=== PATIENT | male | born 1935 | race Caucasian/White ===

== ENCOUNTER 2017-08-18 06:13 | Inpatient (IN) | payer OTHER ==
--- NOTE | 2017-08-18 06:23 | CPEKG ---
Heart Rate: 85 RR Interval: 706 P-R Interval: 184 QRSD Interval: 128 QT Interval: 392 QTC Interval: 467 P [place]: 61 QRS [place]: 42 T Wave [place]: 192 EKG Severity - ABNORMAL ECG - EKG Impression: SINUS RHYTHM EKG Impression: VENTRICULAR PREMATURE COMPLEX EKG Impression: NONSPECIFIC INTRAVENTRICULAR CONDUCTION DELAY EKG Impression: INFERIOR INFARCT, AGE INDETERMINATE EKG Impression: ST DEPRESSION, CONSIDER ISCHEMIA, ANT-LAT LDS Electronically Signed By: Erica Cary 18-Aug-2017 07:55:21
[2017-08-18] MEDS ORDERED: NITROGLYCERIN 0.4 MG BTL SL PRN ×2 (06:25→11:22)
[2017-08-18] MEDS ORDERED: NITROGLYCERIN 0.4 MG BTL SL ONE (06:27)
--- NOTE | 2017-08-18 06:28 | EDPHY ---
H & P Stated Complaint: CP, 7/10 took 2 Nitro 2400, 0500, Significant Cardiac Hx. Time Seen by Provider: 08/18/17 06:24 HPI/ROS: CC: Chest pain HPI: This 82-year-old male with past medical history of extensive coronary artery bypass grafting times to, right-sided pulmonary embolism, hypertension, and hyperlipidemia presents to the emergency department today with complaints of right-sided chest discomfort that started at midnight last night. He states he has had chest discomfort on and off for the last couple of weeks but this usually would go away with nitroglycerin. The pain woke him at midnight was 7/ 10 and on the right lower chest radiating to the mid chest. He had no left- sided chest discomfort and the pain did not radiate through to his back, neck, or jaw. He felt a little sweaty at one point. His right arm was tingling. He had nausea without vomiting. Occasionally he feels lightheaded. He had no shortness of breath. He took a nitroglycerin at 1:00 a.m. and this only brought the discomfort down to a 4. He drove himself to the emergency department. He states he has also had a cough productive of clear sputum for the last 3 weeks. He has not had a fever. He has no leg pain or swelling. He does not think nitroglycerin was but he was running low and needs a refill. He did receive a flu vaccination this year. No ill contacts. REVIEW OF SYSTEMS: Constitutional: No fever, no chills. Eyes: No discharge. ENT: No sore throat. Respiratory: SEE HPI. Cardiac: SEE HPI. Gastrointestinal: No abdominal pain, no vomiting. Genitourinary: No hematuria. Musculoskeletal: No back pain. Skin: No rashes. Neurological: No headache. Source: Patient Exam Limitations: No limitations - Personal History Current Tetanus/Diphtheria Vaccine: Unsure Current Tetanus Diphtheria and Acellular Pertussis (TDAP): Unsure Tetanus Vaccine Date: unknown - Medical/Surgical History PMH: Past medical history includes coronary artery disease with extensive coronary artery bypass grafting x2, numerous percutaneous interventions, large right- sided pulmonary embolism, hypertension, hyperlipidemia, and prostate cancer, GI bleed, CKD Past surgical history includes coronary artery bypass grafting as stated above, pacemaker implant, appendectomy and tonsillectomy Family history is negative for premature coronary artery disease or clotting disorders Allergy to penicillin "I got a rash inside and out " Medications include warfarin, Plavix, lisinopril, isosorbide, carvedilol, Ranexa , Lipitor, furosemide, fish oil, multivitamin, Klor-Con Envelope Stuffer is Dr. Clem Aguiar Hx Asthma: No Hx Chronic Respiratory Disease: No Hx Diabetes: No Hx Cardiac Disease: Yes Hx Renal Disease: Yes Hx Cirrhosis: No Hx Alcoholism: No Hx HIV/AIDS: No Hx Splenectomy or Spleen Trauma: No Other PMH: CAD,HTN, CHF, STENTS,CABG x 2, pacemaker insertion 10/29, PE prostate cancer, gi bleed, CRI. - Family History Significant Family History: No pertinent family hx - Social History Smoking Status: Never smoked Alcohol Use: None Drug Use: None Additional Social History: The patient is and lives with . Denies tobacco, alcohol or marijuana use. - Physical Exam Exam: General Appearance: Alert, mild distress. Eyes: Pupils equal and round no pallor or injection. ENT, Mouth: Mucous membranes are moist. Respiratory: There are no retractions, lungs are clear to auscultation. Cardiovascular: Regular rate and rhythm. Occasional ectopic beat. Gastrointestinal: Abdomen is soft and nontender, no masses, bowel sounds normal. Neurological: Awake and alert, sensory and motor exams grossly normal. Skin: Warm and dry. Musculoskeletal: Neck is supple nontender. No JVD. Extremities are symmetrical, full range of motion. No calf pain or swelling. Radial and DP pulses intact bilaterally. Psychiatric: Patient is oriented X 3, there is no agitation. DIFFERENTIAL DIAGNOSIS: After history and physical exam differential diagnosis was considered for but not limited to: [Acute coronary syndrome, PE, aortic aneurysm, congestive heart failure, pneumonia, pleuritic pain, biliary colic.] Constitutional: Initial Vital Signs Temperature (C) 97.2 F 08/18/17 06:17 Heart Rate 84 08/18/17 06:17 Respiratory Rate 24 H 08/18/17 06:17 Blood Pressure 123/75 H 08/18/17 06:17 O2 Sat (%) 99 08/18/17 06:17 O2 Delivery Mode Room Air Allergies/Adverse Reactions: Penicillins Allergy (Severe, Verified 08/18/17 06:21) Hives Home Medications: Medication Instructions Recorded Atorvastatin Calcium [Lipitor 80 80 mg PO HS 01/18/15 mg] Carvedilol [Coreg (*)] 6.25 mg PO BIDMEAL 01/18/15 Clopidogrel Bisulfate [Plavix (*)] 75 mg PO DAILY@01/18/15 Isosorbide Mononitrate [Imdur 30 30 mg PO BID 01/18/15 mg (*)] Multivitamins [Multivitamin (*)] 1 each PO DAILY@01/18/15 [place]-3 Fatty Acids [Fish Oil 1000 1,000 mg PO DAILY@01/18/15 mg (*)] Ranolazine [Ranexa] 500 mg PO DAILY@01/18/15 Warfarin Sodium [Coumadin 5MG (*)] 2.5 mg PO SUMOWETHSA@01/18/15 Warfarin Sodium [Coumadin 5MG (*)] 5 mg PO TUFR@01/18/15 Nitroglycerin [Nitrostat 0.4 mg 0.4 mg SL Q5M PRN 12/26/15 (*)] Furosemide [Lasix 40 MG (*)] 40 mg PO DAILY #30 tab 12/28/15 Lisinopril [Zestril 10 mg (*)] 10 mg PO DAILY 01/25/16 Potassium Cl [Klor-Con 20 meq (*)] 20 meq PO DAILY 01/25/16 Medical Decision Making - Diagnostics EKG Interpretation: EKG on arrival showed a sinus rhythm with a heart rate of 85, PVCs, nonspecific intraventricular conduction delay, inferior infarct age indeterminate, ST depression and inverted T-waves diffusely. EKG 2. After nitroglycerin the EKG looked improved with a normal sinus rhythm with a heart rate of 67, PVC, left bundle branch block, and prior inferior infarct and was similar to old EKGs. Imaging Results: One view portable chest x-ray showed a pacemaker left upper chest, changes consistent with coronary artery bypass grafting, no infiltrates or effusions. Imaging: I viewed and interpreted images myself ED Course/Re-evaluation: The patient was seen and examined, vital signs reviewed, an EKG was done immediately upon arrival for chest pain of 7/10 and showed changes consistent with increased strain/ischemia. The patient was given aspirin 81 mg and 1 nitroglycerin tablet sublingually and his pain resolved. A chest x-ray was showed no infiltrate or effusion. He did cough a clear thick sputum. CBC was unremarkable. Comprehensive metabolic panel was remarkable for a slightly elevated creatinine of 1.4. His troponin was 0.015. INR 1.97. BNP 5370. The patient's symptoms could be consistent with both cardiac ischemia and pulmonary embolism. The patient was discussed with the hospitalist Dr. Charmaine Huertas. The patient will be placed in PCU on observation status. The patient was reexamined numerous times and had no further recurrence of his chest pain. The patient is awaiting transport to the main hospital. The patient will be monitored by Emergency Medicine Physician, Dr. Taylor, until tranfer. - Data Points Laboratory Results: Laboratory Results 08/18/17 06:21 08/18/17 06:21 08/18/17 08/18/17 08/18/17 07:00 06:21 06:21 WBC RBC Hgb Hct MCV MCH MCHC RDW Plt Count MPV Neut % (Auto) Lymph % (Auto) [place] % (Auto) Eos % (Auto) Baso % (Auto) Nucleat RBC Rel Count Absolute Neuts (auto) Absolute Lymphs (auto) Absolute Monos (auto) Absolute Eos (auto) Absolute Basos (auto) Absolute Nucleated RBC Immature Gran % Immature Gran # PT 22.0 SEC H SEC (12.0-15.0) INR 1.97 H (0.83-1.16) APTT 37.4 SEC SEC (23.0-38.0) Sodium 144 mEq/L mEq/L (135-145) Potassium 4.3 mEq/L mEq/L (3.5-5.2) Chloride 102 mEq/L mEq/L (97-110) Carbon Dioxide 26 mEq/l mEq/l (22-31) Anion Gap 16 mEq/L mEq/L (8-16) BUN 22 mg/dL mg/dL (7-23) Creatinine 1.4 mg/dL H mg/dL (0.7-1.3) Estimated GFR 48 Glucose 149 mg/dL H mg/dL (70-100) Calcium 9.2 mg/dL mg/dL (8.5-10.4) Magnesium 2.1 mg/dL mg/dL (1.6-2.3) Total Bilirubin 1.1 mg/dL mg/dL (0.1-1.4) Conjugated Bilirubin 0.1 mg/dL mg/dL (0.0-0.5) Unconjugated Bilirubin 1.0 mg/dL mg/dL (0.0-1.1) AST 22 IU/L IU/L (17-59) ALT 27 IU/L IU/L (21-72) Alkaline Phosphatase 61 IU/L IU/L (38-126) Creatine Kinase 37 IU/L IU/L (0-224) CK-MB (CK-2) Fraction 0.58 ng/mL ng/mL (0.00-4.55) Troponin I 0.015 ng/mL ng/mL (0.000-0.034) NT-Pro-B Natriuret Pep 5370 pg/mL H pg/mL (0-450) Total Protein 6.7 g/dL g/dL (6.3-8.2) Albumin 3.7 g/dL g/dL (3.5-5.0) Lipase 245 IU/L IU/L (23-300) Nasal Influenza A PCR Pending Nasal Influenza B PCR Pending 08/18/17 06:21 WBC 7.25 10^3/uL 10^3/uL (3.80-9.50) RBC 4.99 10^6/uL 10^6/uL (4.40-6.38) Hgb 14.9 g/dL g/dL (13.7-17.5) Hct 46.0 % % (40.0-51.0) MCV 92.2 fL fL (81.5-99.8) MCH 29.9 pg pg (27.9-34.1) MCHC 32.4 g/dL g/dL (32.4-36.7) RDW 13.7 % % (11.5-15.2) Plt Count 181 10^3/uL 10^3/uL (150-400) MPV 9.9 fL fL (8.7-11.7) Neut % (Auto) 60.6 % % (39.3-74.2) Lymph % (Auto) 28.4 % % (15.0-45.0) [place] % (Auto) 6.2 % % (4.5-13.0) Eos % (Auto) 3.4 % % (0.6-7.6) Baso % (Auto) 1.1 % % (0.3-1.7) Nucleat RBC Rel Count 0.0 % % (0.0-0.2) Absolute Neuts (auto) 4.39 10^3/uL 10^3/uL (1.70-6.50) Absolute Lymphs (auto) 2.06 10^3/uL 10^3/uL (1.00-3.00) Absolute Monos (auto) 0.45 10^3/uL 10^3/uL (0.30-0.80) Absolute Eos (auto) 0.25 10^3/uL 10^3/uL (0.03-0.40) Absolute Basos (auto) 0.08 10^3/uL 10^3/uL (0.02-0.10) Absolute Nucleated RBC 0.00 10^3/uL 10^3/uL (0-0.01) Immature Gran % 0.3 % % (0.0-1.1) Immature Gran # 0.02 10^3/uL 10^3/uL (0.00-0.10) PT INR APTT Sodium Potassium Chloride Carbon Dioxide Anion Gap BUN Creatinine Estimated GFR Glucose Calcium Magnesium Total Bilirubin Conjugated Bilirubin Unconjugated Bilirubin AST ALT Alkaline Phosphatase Creatine Kinase CK-MB (CK-2) Fraction Troponin I NT-Pro-B Natriuret Pep Total Protein Albumin Lipase Nasal Influenza A PCR Nasal Influenza B PCR Medications Given: Nitroglycerin (Nitrostat) 0.4 mg SL Q5M PRN PRN Reason: Chest Pain Last Admin: 08/18/17 06:31 Dose: 0.4 mg Discontinued Medications Aspirin (Aspirin) 81 mg PO EDNOW ONE Stop: 08/18/17 06:26 Last Admin: 08/18/17 06:29 Dose: Not Given
[2017-08-18] MEDS: ASPIRIN 81 MG CHEWABLE TAB PO ONE ×2 (06:29)
[2017-08-18 06:33] LABS: PLATELET COUNT 181 10^3/uL (150-400)
[2017-08-18 06:42] LABS: INR 1.97 (0.83-1.16)
--- NOTE | 2017-08-18 06:44 | CPEKG ---
Heart Rate: 67 RR Interval: 896 P-R Interval: 180 QRSD Interval: 124 QT Interval: 412 QTC Interval: 435 P [place]: 52 QRS [place]: 33 T Wave [place]: 188 EKG Severity - ABNORMAL ECG - EKG Impression: SINUS RHYTHM EKG Impression: VENTRICULAR PREMATURE COMPLEX EKG Impression: LEFT BUNDLE BRANCH BLOCK EKG Impression: PROBABLE INFERIOR INFARCT WITH LBBB Electronically Signed By: Erica Cary 18-Aug-2017 07:55:15
[2017-08-18] MEDS ORDERED: ACETAMINOPHEN 325 MG TAB PO PRN (08:43)
[2017-08-18] MEDS ORDERED: ONDANSETRON DISINTEGRATING 4 MG TAB PO PRN (08:43)
[2017-08-18] MEDS ORDERED: ONDANSETRON 4 MG/2 ML VIAL IVP PRN (08:43)
--- NOTE | 2017-08-18 12:13 | PDCARCONS ---
Cardiology Consult Reason for Consult: Chest discomfort Chief Complaint: Chest discomfort Requesting Physician: Dr. Barajas History of Present Illness: Patient is an 81 y/o male with history of CAD s/p CABG (5V, 1988; 3V, 1996), PCI (LAD, 2009), PCI (rSVG/LCX, 2015), VHD (aortic, mitral, and tricuspid), ischaemic CMP (45%), SSS s/p PPM, HTN, HLP, and chronic PE (on coumadin) History Information - Allergies/Home Medication List Allergies/Adverse Reactions: Penicillins Allergy (Severe, Verified 08/18/17 06:21) Hives Home Medications: Atorvastatin Calcium [Lipitor 80 mg] 80 mg PO DAILY@01/18/15 [Last Taken 17:00] Carvedilol [Coreg (*)] 6.25 mg PO BIDMEAL@,01/18/15 [Last Taken 08/18/17 05 :00] Clopidogrel Bisulfate [Plavix (*)] 75 mg PO DAILY@01/18/15 [Last Taken 05:00] Isosorbide Mononitrate [Imdur 30 mg (*)] 30 mg PO BID@01/18/15 [Last Taken 08/18/17 05:00] Multivitamins [Multivitamin (*)] 1 tab PO DAILY@01/18/15 [Last Taken 12:00] [place]-3 Fatty Acids [Fish Oil 1000 mg (*)] 1,000 mg PO DAILY@01/18/15 [Last Taken 08/17/17 12:00] Ranolazine [Ranexa] 500 mg PO DAILY@01/18/15 [Last Taken 08/18/17 05:00] Warfarin Sodium [Coumadin 5MG (*)] 2.5 mg PO SUMOWETHFRSA@01/18/15 [Last Taken 08/17/17 16:00] Warfarin Sodium [Coumadin 5MG (*)] 5 mg PO TU@01/18/15 [Last Taken 08/13/17] Nitroglycerin [Nitrostat 0.4 mg (*)] 0.4 mg SL Q5M PRN 12/26/15 [Last Taken 06:00] Lisinopril [Zestril 10 mg (*)] 10 mg PO DAILY@01/25/16 [Last Taken 08/18/17 05:00] Furosemide [Lasix 20 MG (*)] 20 mg PO DAILY@08/18/17 [Last Taken 08/18/17 05: 00] Potassium Cl [Klor-Con] 10 meq PO DAILY@08/18/17 [Last Taken 08/18/17 05:00] Past Medical History: - Social History Smoking Status: Never smoked Alcohol Use: None Drug Use: None Physical Exam Physical Exam: Temp Pulse Resp BP Pulse Ox 36.6 C 60 20 102/51 L 96 08/18/17 09:45 08/18/17 12:00 08/18/17 12:00 08/18/17 12:00 08/18/17 12:00 Lab and Imaging 08/18/17 06:21 08/18/17 06:21 WBC 7.25 10^3/uL (3.80-9.50) 08/18/17 06:21 RBC 4.99 10^6/uL (4.40-6.38) 08/18/17 06:21 Hgb 14.9 g/dL (13.7-17.5) 08/18/17 06:21 Hct 46.0 % (40.0-51.0) 08/18/17 06:21 MCV 92.2 fL (81.5-99.8) 08/18/17 06:21 MCH 29.9 pg (27.9-34.1) 08/18/17 06:21 MCHC 32.4 g/dL (32.4-36.7) 08/18/17 06:21 RDW 13.7 % (11.5-15.2) 08/18/17 06:21 Plt Count 181 10^3/uL (150-400) 08/18/17 06:21 MPV 9.9 fL (8.7-11.7) 08/18/17 06:21 Neut % (Auto) 60.6 % (39.3-74.2) 08/18/17 06:21 Lymph % (Auto) 28.4 % (15.0-45.0) 08/18/17 06:21 [place] % (Auto) 6.2 % (4.5-13.0) 08/18/17 06:21 Eos % (Auto) 3.4 % (0.6-7.6) 08/18/17 06:21 Baso % (Auto) 1.1 % (0.3-1.7) 08/18/17 06:21 Nucleat RBC Rel Count 0.0 % (0.0-0.2) 08/18/17 06:21 Absolute Neuts (auto) 4.39 10^3/uL (1.70-6.50) 08/18/17 06:21 Absolute Lymphs (auto) 2.06 10^3/uL (1.00-3.00) 08/18/17 06:21 Absolute Monos (auto) 0.45 10^3/uL (0.30-0.80) 08/18/17 06:21 Absolute Eos (auto) 0.25 10^3/uL (0.03-0.40) 08/18/17 06:21 Absolute Basos (auto) 0.08 10^3/uL (0.02-0.10) 08/18/17 06:21 Absolute Nucleated RBC 0.00 10^3/uL (0-0.01) 08/18/17 06:21 Immature Gran % 0.3 % (0.0-1.1) 08/18/17 06: Immature Gran # 0.02 10^3/uL (0.00-0.10) 08/18/17 06:21 PT 22.0 SEC (12.0-15.0) H 08/18/17 06:21 INR 1.97 (0.83-1.16) H 08/18/17 06:21 APTT 37.4 SEC (23.0-38.0) 08/18/17 06:21 Sodium 144 mEq/L (135-145) 08/18/17 06:21 Potassium 4.3 mEq/L (3.5-5.2) 08/18/17 06:21 Chloride 102 mEq/L (97-110) 08/18/17 06:21 Carbon Dioxide 26 mEq/l (22-31) 08/18/17 06:21 Anion Gap 16 mEq/L (8-16) 08/18/17 06:21 BUN 22 mg/dL (7-23) 08/18/17 06:21 Creatinine 1.4 mg/dL (0.7-1.3) H 08/18/17 06:21 Estimated GFR 48 08/18/17 06:21 Glucose 149 mg/dL (70-100) H 08/18/17 06:21 Calcium 9.2 mg/dL (8.5-10.4) 08/18/17 06:21 Magnesium 2.1 mg/dL (1.6-2.3) 08/18/17 06:21 Total Bilirubin 1.1 mg/dL (0.1-1.4) 08/18/17 06:21 Conjugated Bilirubin 0.1 mg/dL (0.0-0.5) 08/18/17 06:21 Unconjugated Bilirubin 1.0 mg/dL (0.0-1.1) 08/18/17 06:21 AST 22 IU/L (17-59) 08/18/17 06:21 ALT 27 IU/L (21-72) 08/18/17 06:21 Alkaline Phosphatase 61 IU/L (38-126) 08/18/17 06:21 Creatine Kinase 37 IU/L (0-224) 08/18/17 06:21 CK-MB (CK-2) Fraction 0.58 ng/mL (0.00-4.55) 08/18/17 06:21 Troponin I 0.015 ng/mL (0.000-0.034) 08/18/17 06:21 NT-Pro-B Natriuret Pep 5370 pg/mL (0-450) H 08/18/17 06:21 Total Protein 6.7 g/dL (6.3-8.2) 08/18/17 06:21 Albumin 3.7 g/dL (3.5-5.0) 08/18/17 06:21 Lipase 245 IU/L (23-300) 08/18/17 06:21 Nasal Influenza A PCR NEGATIVE FOR FLU A (NEGATIVE) 08/18/17 07:00 Nasal Influenza B PCR NEGATIVE FOR FLU B (NEGATIVE) 08/18/17 07:00
--- NOTE | 2017-08-18 13:16 | GHP ---
[f rep st] HISTORY AND PHYSICAL DATE OF ADMISSION: 08/18/2017 CHIEF COMPLAINT: Right-sided chest pain. PRIMARY STARCH TREATING ASSISTANT: Dr. Aguiar. HISTORY OF PRESENT ILLNESS: An 82-year-old male with extensive coronary disease status post CABG x2, valvular heart disease (atrial, mitral, tricuspid) , chronic pulmonary embolism 2009, and dual pacemaker who presented with right- sided chest pain. It started at midnight last night and describes the pain under his ribs as a bubble sensation. He had mild nausea and sweating with it. It was an 8/10 and went down to a 4 with nitroglycerin. The pain recurred this morning, thus he drove himself to [facility]. Does complain of occasional left-sided pain. Again, that feels like an air bubble, relieved with nitroglycerin. These episodes last for 30 seconds. He has noted that this sensation has been occurring more frequently, every other day for the past 2 weeks. He denies any new shortness of breath, fevers, chills , or cough. No PND, pillow orthopnea, or lower extremity edema. He exercises in the CSD[employer] program Mondays, Wednesdays, and Fridays at the [employer] without issue. He walked a mile on Saturday without chest pain or shortness of breath. Per family, he has been more "unsteady" this past week. Has appeared to be breathing harder. REVIEW OF SYSTEMS: I completed a 10-point review of systems, negative except as noted in HPI. PAST MEDICAL HISTORY: 1. Coronary disease: CABG x2, five-vessel 1988, 3- vessel, in 1996. 2. Cardiomyopathy, EF had been 45%, down to 20%. Last cardiac catheterization 01/26/2016, showed a patent internal mammary to LAD, 90% stenosis in the saphenous graft to the OM, and an occluded graft to the diagonal. 3. Pulmonary embolism in 2009. Dual pacemaker for sick sinus syndrome. 4. History of VT, 4 to 5 beats on his pacer in 07/2017. 5. Ischemic cardiomyopathy: echo 35% last echo. 6. Valvular heart disease (atrial, mitral, tricuspid). 7. Hypertension. 8. Hyperlipidemia. 9. Prostate cancer. PAST SURGICAL HISTORY: 1. CABG x2. 2. Appendectomy. 3. Tonsillectomy. 4. Radiation beads to prostate. SOCIAL HISTORY: Lives in [place] with his , 50 years. Had 2 sons. No tobacco, alcohol or illicits. FAMILY HISTORY: Coronary disease on both sides as well as hypertension. PHYSICAL EXAMINATION: VITAL SIGNS: Temperature 36.6, blood pressure 108/50, heart rate in the 60s, respirations 14, 98% on room air. GENERAL: Well-appearing , lying in bed, no acute distress. HEENT: PERRLA. EOMI. Oropharynx clear. CARDIOVASCULAR: Regular. No murmurs, gallops, or rubs. No edema. LUNGS: Clear. No crackles. ABDOMEN: Soft, nontender, nondistended. No right upper quadrant pain. GENITOURINARY: No suprapubic pain. MUSCULOSKELETAL: 5/5 upper and lower extremity strength. NEUROLOGIC: 2 through 12 intact. PSYCHIATRIC: Alert oriented x3. LABORATORY STUDIES: WBC 7, hemoglobin 14, hematocrit 46, platelets 181. INR is 1.97, PTT 22. Sodium 144, potassium 4.3, chloride 102, carbon dioxide 26, anion gap 16 creatinine is 1.4 (baseline is 1.1 to 1.3), glucose 149, magnesium 2.1. LFTs within normal. BNP is 53 and 70. Total protein is 6.7. Troponin 0.015. EKG personally reviewed by me, PVC, normal sinus rhythm, has ST depression and lateral 1 aVL as well as 2, 3 and AVF which is different from prior. HOME MEDICATIONS: Tylenol as needed, atorvastatin 80 mg daily, Coreg 6.25 mg twice daily, Plavix 75 mg daily, Lasix 20 mg daily, Imdur 30 mg twice daily, Zestril 10 mg daily, multivitamin, nitroglycerin as needed, omega-3, Zofran as needed, potassium 10 mEq daily, Ranexa 500 mg daily, Coumadin 5 mg Tuesdays, 2.5 mg all the other days. ALLERGIES: Penicillins. ASSESSMENT AND PLAN: 1. Unstable angina: increased symptoms over past 2 weeks. 2nd troponin bumped to 0.1. Has subtle ST depressions lateral and inferior leads on EKG. Currently chest pain free. Start IV heparin. Dr. Abraham evaluated and plan for cath in morning unless more CP overnight. Another consideration is PE, but INR 1/4 was 3.1 and minimally subtherapeutic today at 1.97. Not hypoxic or requiring. If cath unrevealing, consider CTA. 2. Chronic pulmonary embolus. This was in 2009. His INR is slightly low at 1.97. We will not bridge given remote history. Holding while on heparin gtt to avoid bleeding risk 3. History of sick sinus syndrome: dual pacemaker. 4. Valvular heart disease: Affecting the atrial, mitral and tricuspid valve. He is euvolemic here. We will resume home medications. 5. Ischemic cardiomyopathy. EF 35%. Euvolemic. Will resume home medications. 6. Coronary artery disease. Coronary artery bypass grafting x2. Continue statin, Plavix, Ranexa, Imdur. 7. Hypertension, controlled. 8. Hyperlipidemia, statin. DIET: Cardiac. DVT PROPHYLAXIS: On Coumadin. DISPOSITION: Patient warrants observation admission given acute chest pain warranting further evaluation by Cardiology. /[id number]/MODL MTDD
[2017-08-18] MEDS ORDERED: HEPARIN 10,000 UNIT/10 ML MDV (1,000 UNIT/ML) IVP ONE ×2 (13:57→14:51)
[2017-08-18] MEDS ORDERED: HEPARIN 10,000 UNIT/10 ML MDV (1,000 UNIT/ML) IVP PRN (13:57)
[2017-08-18] MEDS ORDERED: HEPARIN/DEXTROSE 500 ML IV SCH ×2 (14:00→15:00)
[2017-08-18] MEDS ORDERED: TEMAZEPAM 15 MG CAP PO PRN (14:01)
[2017-08-18 14:54] LABS: PLATELET COUNT 148 10^3/uL (150-400)
--- NOTE | 2017-08-18 15:12 | GCON ---
[f rep st] CONSULTATION CARDIOLOGY CONSULTATION HISTORY OF PRESENT ILLNESS: I have been asked to visit with this patient by Dr. Alicia Barajas. He is an 82-year-old male with a history of extensive coronary artery disease, status post CABG on 2 separate occasions, multiple PCIs following the most recent CABG in 1996. He also has a history of chronic pulmonary embolism and a dual-chamber pacemaker. He presented with right-sided chest pain which is different than his usual angina. It started at midnight and was described as a "bubble under my ribs." This was associated with mild nausea. He describes the pain as an 8 on a scale of 1-10, and this improved to 4/10 with sublingual nitroglycerin. He had recurrent pain this morning, and therefore went to the [facility]. Of note, he does have similar "bubble" type chest pain on the left side, which is relieved with nitroglycerin. Episodes last for up to 30 seconds. This sensation has been occurring more frequently over the last 2 weeks. No chest pain at rest when I examine the patient. Denies orthopnea or PND. He walked 1 mile on Saturday without any chest pain or shortness of breath. REVIEW OF SYSTEMS: Negative except for what is mentioned in HPI. PAST MEDICAL HISTORY: 1. CABG twice. First one was a 5-vessel CABG in 1988. The second one was a 3- vessel CABG in 1996. 2. Ischemic cardiomyopathy. Echocardiogram done at [facility] on 01/30/2016 reported the ejection fraction of 35%, with basilar to mid inferolateral and inferior hypokinesis, diastolic dysfunction, mild to moderate MR, moderate pulmonary hypertension, mild TR. 3. Pulmonary embolism in 2009. 4. Dual-chamber pacemaker for sick sinus syndrome. 5. Hypertension. 6. Hyperlipidemia. 7. Prostate cancer. PAST SURGICAL HISTORY: CABG as mentioned above. Appendectomy, tonsillectomy, and radiation beads of prostate. SOCIAL HISTORY: Not relevant for this exam. Denies alcohol or tobacco use. FAMILY HISTORY: Not relevant for this exam. PHYSICAL EXAMINATION: GENERAL: This is an elderly white male, lying in bed without any distress. VITAL SIGNS: At the time of examination, blood pressure was 102/51 mmHg, heart rate of 60 to 65 beats per minute, oxygen saturations 96 % on room air, afebrile. NECK: No JVD. No carotid bruit. No thyromegaly. CVS: S1 and S2. Regular rate and rhythm. There is a systolic murmur grade 2/ 6 heard at the apex. There are no gallops or rubs. ABDOMEN: There is no tenderness, guarding, or rigidity. Bowel sounds are present. EXTREMITIES: There is no clubbing, cyanosis, or edema. LABORATORY DATA: EKG on arrival was reviewed. This shows normal sinus rhythm, old inferior myocardial infarction. There are T-wave inversions in lead 1, aVL , and V4 to V6. This is compared to a previous EKG from January 27, 2016. The T- wave inversions in the lateral leads are present at the time of that EKG. Q- waves in the inferior leads are present as well at that time. Echocardiogram is pending at the time of this dictation. Chest x-ray was reviewed. This shows sternal wires in place, dual-chamber pacemakers in place, cardiomegaly. No acute abnormalities are noted. Labs were reviewed. White count 7.25, hemoglobin 14.9, platelets 181. Coags: INR is 1.97. Chemistry: BUN 22, creatinine 1.4, potassium 4.3, sodium 144. LFTs normal. CK-MB 0.58. Troponin 0.015. Second troponin is elevated at 0.191. NT proBNP is elevated at 5370. ASSESSMENT AND PLAN: This is an 82-year-old male with history of extensive coronary artery disease, status post CABG twice, multiple PCIs, who is now presenting with non-ST elevation SC. He is currently chest pain-free. He remains hemodynamically stable. Beta blockers will be continued. Aspirin and Plavix will be continued as well. He is currently on optimal medical therapy with beta blockers, Ranexa, and p.r.n. nitroglycerin. Given his non-ST elevation SC, coronary angiography is appropriate. The procedure will be scheduled for tomorrow morning. Risks of the procedure, including worsening of his renal insufficiency, were discussed with the patient. His RN was present in the room at the time of this discussion. Thank you for the consultation. We will follow the patient with you. /[id number]/MODL MTDD
[2017-08-18] MEDS ORDERED: WARFARIN SODIUM 5 MG TAB PO SCH (16:00)
[2017-08-18] MEDS: OMEGA-3 FATTY ACIDS 1,000 MG CAP PO SCH (16:30)
[2017-08-18] MEDS: MULTIVITAMINS 1 EACH TAB PO SCH (16:30)
[2017-08-18] MEDS: ISOSORBIDE MONONITRATE 30 MG TAB.SR PO SCH ×2 (18:27→19:39)
[2017-08-18] MEDS: CARVEDILOL 6.25 MG TAB PO SCH (18:38)
[2017-08-18] MEDS: FAMOTIDINE 20 MG/NACL 50 ML IV SCH (22:23)
--- NOTE | 2017-08-19 04:44 | ECHO ---
[email or web address] [address] [address] Main: [phone] Fax: Transthoracic Echocardiogram Name: XAVIER KOVACS MR#: [id number] Study Date: 08/18/2017 Study Time: 03:33 PM Date of : 1935 Age: 82 year(s) Height: 180.3 cm (71 in.) Weight: 74.84 kg (165 lb.) BSA: 1.94 m2 Gender: Male Examination: Echo Indication: Eval EF Image Quality: Technically Difficult Contrast: Requested by: David Abraham BP: 120 mmHg/42 mmHg Heart Rate: Rhythm: Indication: Eval EF Procedure Staff Surface Miner: Fannie Kent Reading Physician: David Abraham Requesting Provider: Conclusions: Moderately dilated left ventricle. Moderately reduced systolic LV function. EF is 37 %. The left atrium is moderately to severely dilated. Moderate aortic cusp calcification is present. Moderate calcific aortic valve stenosis. Mild tricuspid regurgitation is present. Cannot rule out LV apical thrombus recommend repeat study with Definity Wall motion abnormalities as listed above. Measurements: Chambers Valvular Assessment AV/MV Valvular Assessment TV/PV Normal Normal Normal Name Value Range Name Value Range Name Value Range IVSd (2D): 1.4 cm (0.6 cm-1.1 AV meanP mmHg ( - ) TR Vmax: 2.47 mm/s ( - ) cm) LVOT Vmax: 0.85 m/s (0.7 m/s-1.1 TR PGmax: 24 mmHg ( - ) LVDd (2D): 6.7 cm (4.2 cm-5.9 m/s) syst. PAP: 34 mmHg ( - ) cm) CANDIE (VTI): 1.1 cm ( - ) LVDs (2D): 5.2 cm (2.1 cm-4 AR (PHT): 358 ms ( - ) cm) MV E Vmax: 0.64 m/s ( - ) LVPWd (2D): 0.9 cm (0.6 cm-1 MV A Vmax: 0.47 m/s ( - ) cm) MV E/A: 1.36 ( - ) LVOTd 2.3 cm 2.3 cm mm LVEF (BP): 37 % (>=55 %) Continued Measurements: Chambers Valvular Assessment AV/MV Valvular Assessment TV/PV Name Value Name Value Name Value Patient: XAVIER KOVACS Study Date: 08/18/2017 Page 1 of 2 03:33 PM LADs Lon.1 cm MV DecTime: 254 m/s CVP (est.): 10 mmHg LA Area: 27.9 cm2 AR Vmax: 3.15 cm/s LA Volume: 113 ml LA Volume Index: 58.2 ml/m2 TAPSE: 1.5 cm Findings: Left Ventricle: Moderately dilated left ventricle. Asymmetrical basal-septal LV hypertrophy. Moderately reduced systolic LV function. EF is 37 %. The basal anteroseptal, basal anterior, basal septal, mid anteroseptal, mid anterior, mid septal, apical anterior, apical lateral, apical inferior and apical septal wall segments are hypokinetic. The basal lateral, basal posterior, basal inferior, mid lateral, mid posterior and mid inferior wall segments are akinetic. Right Ventricle: Normal size right ventricle. Normal RV function. Left Atrium: The left atrium is moderately to severely dilated. Right Atrium: The right atrium is mildly dilated. Mitral Valve: The mitral valve is normal in appearance and function. Trivial to mild mitral regurgitation. No mitral stenosis is present. Aortic Valve: Aortic valve is not well visualized. Moderate aortic cusp calcification is present. Moderate calcific aortic valve stenosis. Mild to moderate aortic valve regurgitation. AV max 3.15 m/s, mean PG 31 mmHg.. Tricuspid Valve: The tricuspid valve is normal in appearance and function. Mild tricuspid regurgitation is present. Right Ventricular systolic pressure is measured at 34 mmHg. Pulmonic Valve: Pulmonary valve not visualized. IVC: The IVC is not visualized. Pericardium: No pericardial effusion. There is pericardial fat. (No Signature Object) Wall Motion Scores Patient: XAVIER KOVACS Study Date: 08/18/2017 Page 2 of 2 03:33 PM [id number]
[2017-08-19] MEDS ORDERED: LISINOPRIL 10 MG TAB PO SCH (05:00)
[2017-08-19] MEDS: RANOLAZINE 500 MG TAB.ER PO SCH (05:00)
[2017-08-19 05:01] LABS: PLATELET COUNT 148 10^3/uL (150-400)
[2017-08-19 05:05] LABS: INR 1.94 (0.83-1.16); PROTIME(PATIENT) 22.2 SEC (12.0-15.0)
[2017-08-19] MEDS: ISOSORBIDE MONONITRATE 30 MG TAB.SR PO SCH ×2 (06:17→16:33)
[2017-08-19] MEDS: CARVEDILOL 6.25 MG TAB PO SCH ×2 (06:18→16:33)
[2017-08-19] MEDS: FUROSEMIDE 20 MG TAB PO SCH (06:18)
[2017-08-19] MEDS: CLOPIDOGREL BISULFATE 75 MG TAB PO SCH (06:18)
[2017-08-19] MEDS: POTASSIUM CL 10 MEQ TAB PO SCH (06:18)
[2017-08-19] MEDS: FAMOTIDINE 20 MG/NACL 50 ML IV SCH (08:03)
--- NOTE | 2017-08-19 08:47 | CPEKG ---
Heart Rate: 60 RR Interval: 1000 P-R Interval: 184 QRSD Interval: 122 QT Interval: 452 QTC Interval: 452 P [place]: -39 QRS [place]: 46 T Wave [place]: 127 EKG Severity - ABNORMAL ECG - EKG Impression: SINUS RHYTHM EKG Impression: NONSPECIFIC INTRAVENTRICULAR CONDUCTION DELAY EKG Impression: INFERIOR INFARCT, AGE INDETERMINATE Electronically Signed By: David Abraham 19-Aug-2017 11:22:19
[2017-08-19] MEDS ORDERED: PERFLUTREN LIPID MICROSPHERES 1.1 MG/ML VIAL IV ONE (09:45)
--- NOTE | 2017-08-19 09:51 | PDCARPN ---
Cardiology Progress Note Chief Complaint: CP Assessment/Plan: Assessment: CP hx of CABG times two times Ischemic CM Plan: 08/19/17 09:49 Echo with definity today to r/o LV thrombus Though pt is CP free, his trop level is elevating On maximal medical therapy, feel we probably need to proceed with [facility] to define anatomy given recent trop elevation/symptoms Subjective: CP free Reviewed/Discussed With: multidisciplinary team Time Spent With Patient: 25 min Objective: Vital Signs (8 Hrs) Temp Pulse Resp BP Pulse Ox 08/19/17 09:00 60 14 105/45 L 96 08/19/17 07:43 36.6 C 60 19 82/46 L 94 08/19/17 06:18 80 95/43 L 08/19/17 06:17 95/43 L 08/19/17 04:00 36.8 C 65 18 93/51 L 96 Intake/Output (24 Hrs) 08/18/17 08/19/17 08/20/17 05:59 05:59 05:59 Intake Total 1100 Output Total 1200 Balance -100 Intake: Oral (ml) 900 IV Intake (ml) 200 Output: Urine (ml) 1200 Toilet 1200 Other: Weight 69 kg Number of Voids Toilet 3 Number of Stools Toilet 1 Result Diagrams: 08/19/17 04:30 08/19/17 04:30 Cardiac Labs: Cardiac Lab Results (72 Hrs) 08/18/17 08/18/17 19:47 12:30 Troponin I 0.203 H 0.191 H - Physical Exam Constitutional: healthy appearing Eyes: PERRL Ears, Nose, Mouth, Throat: moist mucous membranes Cardiovascular: regular rate and rhythm Peripheral Pulses: 1+: femoral (R), femoral (L) Respiratory: clear to auscultate bilat Gastrointestinal: normoactive bowel sounds Genitourinary: no suprapubic tenderness Skin: no rashes Musculoskeletal: no muscular tenderness Neurologic: AAOx3 ICD10 Worksheet Patient Problems: Problems Problem Status Onset Chronic Disease Mgmt/Transitional Care Acute Congestive heart failure Acute
[2017-08-19] MEDS ORDERED: fentaNYL 100 MCG/2 ML INJ ONE (10:12)
[2017-08-19] MEDS ORDERED: MIDAZOLAM 2 MG/2 ML VIAL ONE (10:12)
[2017-08-19] MEDS ORDERED: LIDOCAINE 1% 300 MG/30 ML SDV ONE (10:12)
[2017-08-19] MEDS ORDERED: IOPAMIDOL (ISOVUE-370) 150 ML BTL IV ONE ×2 (10:13→11:06)
[2017-08-19] MEDS ORDERED: CLOPIDOGREL BISULFATE 75 MG TAB ONE (10:39)
--- NOTE | 2017-08-19 10:44 | ECHO ---
[email or web address] [place] [id number] Main: [phone] Fax: Transthoracic Echocardiogram Name: XAVIER KOVACS MR#: [id number] Study Date: 08/19/2017 Study Time: 09:59 AM Date of : 1935 Age: 82 year(s) Height: 180.3 cm (71 in.) Weight: 70.76 kg (156 lb.) BSA: 1.9 m2 Gender: Male Examination: Limited Echo with Definity Indication: R/O LV apical thrombus, hx - CABG x 2/Pacer/HTN Image Quality: Contrast: Requested by: Solomon Garcia BP: / Heart Rate: Rhythm: Indication: R/O LV apical thrombus, hx - CABG x 2/Pacer/HTN Procedure Staff Contact Officer: Sarina Waldron Reading Physician: Brandon Knapp Requesting Provider: Conclusions: Moderately reduced systolic LV function. No LV apical thrombus. Measurements: Chambers Valvular Assessment AV/MV Valvular Assessment TV/PV Normal Normal Normal Name Value Range Name Value Range Name Value Range Continued Measurements: Findings: Left Ventricle: Moderately reduced systolic LV function. No LV apical thrombus. Exam Comments: Definity lipid microspheres was injected to R/O LV apical thrombus. 0.25 mg was injected. . (No Signature Object) Patient: XAVIER KOVACS Study Date: 08/19/2017 Page 1 of 1 09:59 AM [id number]
--- NOTE | 2017-08-19 12:27 | CPIP ---
[f rep st] INVASIVE CARDIAC PROCEDURE DATE OF PROCEDURE: 08/19/2017 INDICATIONS FOR PROCEDURE: Non-STEMI. PROCEDURE PERFORMED: 1. Nonselective right groin sheathogram. 2. Bilateral coronary angiography. 3. Saphenous vein angiography, marginal 1 artery. 4. Saphenous vein angiography, presumably the diagonal artery. 5. Nonselective right internal mammary artery angiography to distal right coronary artery. 6. Left internal mammary artery angiography to mid-left anterior descending. HISTORY: Briefly, this is an 82-year-old male with history of bypass surgery x2 separate times, mode rate aortic stenosis, cardiomyopathy, admitted for chest pain. The patient was found to have elevate d troponin levels. Given these findings, the patient consented for left heart catheterization. DESCRIPTION OF PROCEDURE: After informed consent was obtained, the patient was brought to [facility] where the right groin was prepped in sterile fashion. Lidocaine and a short 6-Mongolian sheath was placed in the right femoral artery, verified angiographically. Through this 6-Mongolian sheath, a JL4 catheter wa s advanced to the left coronary artery. Images of the left coronary artery revealed normal ostial le ft main, distal left main tapered into what appeared to be a subtotally occluded marginal artery, whi ch only had an AV groove circumflex coming off it with a high-grade 99% stenosis in the proximal port ion. Also, there appeared to be a diagonal artery versus large septal, which provided collateralizat ion to a small diagonal artery distally. The LAD was not visualized. After these images were obtain ed, JL4 catheter was removed. A JR4 catheter was advanced to the right coronary artery. Image of th e right coronary artery reveal 100% occluded proximal RCA. After these images were obtained, the JR4 guide was pulled back into the 1st graft, which was an extensively stented graft leading to a margin al artery. The stents themselves were widely patent. Distally, the marginal artery appeared to be w idely patent, and it appeared to be a marginal 1 artery. Of note, there was collateralization of wha t appeared to be other marginal arteries coming off this branch. The JR4 was then pulled back into t he 2nd graft, which was 100% occluded proximal graft of an extensively stented saphenous vein graft, most likely to a diagonal artery, which was noted on prior angiograms. The JR4 catheter was then pul led back into the right subclavian artery, where angiography of the right subclavian artery showed pa tent FARA anastomosing to a distal RCA. This appeared to be patent, though not completely opacified, secondary to nonselective angiogram. However, there did not appear to be any high-grade lesion nece ssitating further examination. After these images were obtained, the JR4 catheter was removed, and ca theter was placed into the left subclavian artery and switched out for a TORRES catheter. Angiography of the left internal mammary artery showed widely patent TORRES anastomosing into the mid LAD. The dis vivian LAD had diffuse plaque disease but no high-grade obstruction. At this time, the TORRES catheter wa s removed. The right groin was closed with a 6-Mongolian AngioSeal. The patient tolerated the procedur e well, with no complications. IMPRESSION: 1. Severe [place] coronary artery disease. 2. Patent left internal mammary artery to left anterior descending. 3. Patent right internal mammary artery to distal right coronary artery. 4. Patent saphenous vein graft, which had been previously extensively stented to marginal 1 artery. 5. Occluded saphenous vein graft to presumably diagonal artery. PLAN: No ventriculogram was obtained secondary to the fact the patient was to have an LV-gram with D efinity to rule out apical thrombus. The patient does have a history of moderate aortic stenosis, wh ich may be underestimated secondary to his reduced ejection fraction. We will continue his current c linical medications and planned discharge as per primary team. /[id number]/MODL
[2017-08-19] MEDS ORDERED: DOBUTamine/DEXTROSE 250 ML IV SCH (12:30)
[2017-08-19] MEDS ORDERED: ATROPINE SULFATE 1 MG/10 ML SYR ONE (12:52)
[2017-08-19] MEDS: MULTIVITAMINS 1 EACH TAB PO SCH (15:28)
[2017-08-19] MEDS: OMEGA-3 FATTY ACIDS 1,000 MG CAP PO SCH (15:28)
--- NOTE | 2017-08-19 16:26 | ASMTCMCOM ---
CM Note CM Note Notes: 82 year old male admitted for CP. Has a hx of CABG x 2, Cardiomyopathy, HTN,HLD, Pacer. Went to the lab clerk today and to continue with medications. Possible discharge Saturday. Patient lives with his . No discharge needs anticipated at this time. Date Signed: 08/19/2017 04:25 PM Electronically Signed By:Kiesha Bryant LCSW
[2017-08-19] MEDS ORDERED: ATORVASTATIN CALCIUM 40 MG TAB PO SCH (17:00)
--- NOTE | 2017-08-19 17:36 | PDMN ---
Medical Necessity Medical necessity: Pt meets INPT criteria per MD as of 08/19/17 and MCG M-230 Myocardial Infarction (acute NSTEMI; hx valvular heart disease, extensive CAD, s /p CABG twice, multiple PCIs, ishcemic cardiomyopathy, pacemaker, PE).
--- NOTE | 2017-08-19 18:27 | HOSPPROG ---
Hospitalist Progress Note Assessment/Plan: Assessment: 82-year-old male presents with non ST-elevation myocardial infarction Plan: 1. Non ST-elevation myocardial infarction. Acute, new problem this provider. Likely type 2, peak troponin 0.2, chest pain, cardiac catheterization demonstrating significant [place] vessel coronary artery disease but patent grafts, not requiring further PCI -LDL 69 at goal -continue Plavix, statin, beta-tiffanie, isosorbide 2. Aortic valve stenosis. Moderate on echo, with mild to moderate aortic insufficiency, TAVR recommended to patient -patient is interested in pursuing, will coordinate with cardiology service -carotid ultrasounds pending for staging -definity study demonstrating no left apical thrombus 3. Recurrent venous thromboembolism. Patient is on lifelong systemic anticoagulation, he has been placed on bridging heparin for possible procedure -continue monitor INR -continue heparin drip 4. Chronic systolic congestive heart failure with ischemic cardiomyopathy. No evidence of acute exacerbation, continue home dose of Lasix -held COOKIE-inhibitor this morning, reinitiate following any cardiac procedures 5. Chronic kidney disease stage 3. Reviewed outside records demonstrates baseline creatinine is 1.1-1.3 -continue to monitor serum creatinine level given contrast load 6. Cough. Patient with clear sputum, sent for culture comma chest x-ray demonstrating no infiltrate, personally interpreted Diet. Cardiac Prophylaxis. High risk patient, currently on heparin drip Code. Disposition. Anticipated discharge uncertain, pending valve replacement recommended by Cardiology. Subjective: Patient reports no chest pain Objective: Vital Signs Temp Pulse Resp BP Pulse Ox 36.6 C 62 16 124/63 H 97 08/19/17 15:23 08/19/17 16:00 08/19/17 15:23 08/19/17 16:00 08/19/17 15:23 PT 22.2 SEC (12.0-15.0) H D 08/19/17 04:30 INR 1.94 (0.83-1.16) H 08/19/17 04:30 - Physical Exam Constitutional: no apparent distress, appears nourished, not in pain, No uncomfortable Cardiovascular: regular rate and rhythym, systolic murmur (1/6 at right sternal border), No irregularly irregular, No tachycardia, No edema Respiratory: no respiratory distress, no rales or rhonchi, clear to auscultation Gastrointestinal: normoactive bowel sounds, soft, non-tender abdomen, no palpable masses Skin: other (No hematoma, ecchymosis, erythema, tenderness at the right cath site) Neurologic: AAOx3, sensation intact bilaterally, No weakness Psychiatric: interacting appropriately, not anxious, not encephalopathic, thought process linear ICD10 Worksheet Patient Problems: Problems Problem Status Onset Chronic Disease Mgmt/Transitional Care Acute Congestive heart failure Acute
[2017-08-19] MEDS ORDERED: HEPARIN 10,000 UNIT/10 ML MDV (1,000 UNIT/ML) IVP PRN (18:34)
[2017-08-19] MEDS ORDERED: HEPARIN/DEXTROSE 500 ML IV SCH (18:45)
[2017-08-19 19:56] LABS: INR 1.66 (0.83-1.16); PROTIME(PATIENT) 19.7 SEC (12.0-15.0)
[2017-08-19] MEDS: FAMOTIDINE 20 MG TAB PO SCH (20:04)
--- NOTE | 2017-08-19 20:08 | CPR ---
[f rep st] NONINVASIVE CARDIAC PROCEDURE REPORT DATE OF PROCEDURE: 08/19/2017 PROCEDURE: Dobutamine stress echo. INDICATIONS: Severe aortic stenosis/reduced ejection fraction. DESCRIPTION OF PROCEDURE: According to [facility] dobutamine stress echocardiographic protocol, the patient had baseline echocardiographic images obtained which showed an EF of approximat kelly 30% to 35% with global hypokinesis with severe calcification across the aortic valve. Baseline i mages revealed a valve area of 0.8 sq cm with a peak velocity of 3.7 cm/sec. Dobutamine infusion was started at 10 mcg/kg per minute and increased to 20 mcg/kg per minute at 3 minutes. At the 3 minute art, the patient's gradient increased from 3.7 to 3.98 cm/sec, with an ejection fraction that incre ased from 30% to 35% to approximately 40% to 45%. At 6 minutes, the patient had repeat images perfor med which showed a velocity of 4.2 cm/sec across the aortic valve with an EF approaching 50%. Patien t's baseline blood pressure was 106/70, which increased to 130/70, heart rate which was baseline at 6 2 increased to 70 beats per minute with maximum infusion. At this time, dobutamine infusion was turne d off. The patient tolerated the procedure well with no complications. IMPRESSION: Severe aortic stenosis as documented by increase of velocity across the aortic valve wit h dobutamine infusion and an increase in ejection fraction. PLAN: We will discuss the patient's results with Dr. Aguiar, the patient's primary human resources technician as t he patient is clearly symptomatic from his aortic stenosis. However, given his reduced ejection frac tion and multiple bypasses, multiple open heart surgeries, he is at high risk for any valve replaceme nt procedure, although TAVR may be considered if he is a viable candidate. We will continue to ayah vyas clinically. /[id number]/MODL
--- NOTE | 2017-08-19 20:34 | GCON ---
[f rep st] CONSULTATION IMPRESSION: 1. Symptomatic aortic stenosis with severe 3-vessel disease, status post two prior coronary artery b ypass grafting and multiple stents. 2. Moderate cardiomyopathy with ejection fraction at 45%. 3. History of pulmonary embolism, remote. 4. Status post permanent pacemaker for sick sinus syndrome. 5. History of ventricular tachycardia. 6. Hypertension. 7. Hyperlipidemia. 8. Prostate cancer. RECOMMENDATIONS: This gentleman is not a surgical candidate, given his poor coronary anatomy, and it would be a third operation with TAVR as an option in a critically abnormal aortic valve confirmed by dobutamine stress echo today. He should undergo TAVR. The option of open surgical procedure was no t offered to the patient, nor would I offer this gentleman surgery. I believe his risk would exceed 10% and his morbidity would be 100%. The patient is quite alert, oriented, and prefers TAVR interven tion. CHIEF COMPLAINT: This is an 82-year-old gentleman with a complex coronary artery revascularization h istory with two previous open bypass procedures. He had known aortic stenosis. He presented with ch est pain and mild troponin elevation. Catheterization today revealed adequate revascularization with 2 internal mammary arteries and a vein graft that were patent. Ventricular function is moderately i mpaired with a dobutamine stress echocardiogram. He had critical aortic stenosis by criteria. Pleas e see separate report. PAST MEDICAL HISTORY: As stated. PAST SURGICAL HISTORY: Surgeries include coronary bypass grafting x2, multiple stents, appendectomy, tonsillectomy, and radiation beads to the prostate. SOCIAL HISTORY: He lives in [place]. 50 years. He has 2 sons. No tobacco or alcohol. FAMILY HISTORY: Noncontributory. REVIEW OF SYSTEMS: He is presently asymptomatic recovering form anesthesia. PHYSICAL EXAMINATION: GENERAL: This is a slender, elderly gentleman, very alert, and oriented in no apparent distress. Blood pressure is 120/80, pulse 76, respirations 16, nonlabored. HEENT: Normoc ephalic. NECK: He has bilateral carotid bruits, radiating from the chest. HEART: 4/6 systolic eje ction murmur. LUNGS: Clear. ABDOMEN: Scaphoid. Bowel sounds are active. RECTAL/: Deferred. N EUROLOGIC: He is grossly intact. EXTREMITIES: No edema. No varicosities. Please see catheterization report and echocardiogram report for details. /[id number]/MODL
[2017-08-20] MEDS: FUROSEMIDE 20 MG TAB PO SCH (05:32)
[2017-08-20] MEDS: RANOLAZINE 500 MG TAB.ER PO SCH (05:32)
[2017-08-20] MEDS: ISOSORBIDE MONONITRATE 30 MG TAB.SR PO SCH (05:32)
[2017-08-20] MEDS: POTASSIUM CL 10 MEQ TAB PO SCH (05:33)
[2017-08-20] MEDS: CARVEDILOL 6.25 MG TAB PO SCH (05:33)
[2017-08-20] MEDS: CLOPIDOGREL BISULFATE 75 MG TAB PO SCH (05:33)
--- NOTE | 2017-08-20 07:06 | PDCARPN ---
Cardiology Progress Note Chief Complaint: SOB/CP Assessment/Plan: Assessment: CP hx of CABG times two times Ischemic CM Plan: 08/19/17 09:49 Echo with definity today to r/o LV thrombus Though pt is CP free, his trop level is elevating On maximal medical therapy, feel we probably need to proceed with [facility] to define anatomy given recent trop elevation/symptoms 08/20/17 07:03 cath revealed no new blockages Pt has severe on echo--confirmed with dobutamine stress echo d/w patient--would lioke to proceed with TAVR if possible Dr. pickens evaluated patient--deemed not a good open AVR candidate Will order CTAs for TAVR today OK to d/c home after CTAs--f/u this week in office with patient and family to discuss fully issues related to TAVR as patient is certainly high-risk given multiple co-morbid issues (mainly low EF) Reviewed/Discussed With: multidisciplinary team Time Spent With Patient: 25 min Objective: Vital Signs (8 Hrs) Temp Pulse Resp BP Pulse Ox 08/20/17 05:33 65 101/55 L 08/20/17 05:32 101/55 L 08/20/17 04:00 36.8 C 64 14 101/55 L 96 08/20/17 00:00 36.5 C 60 12 96/46 L 95 Intake/Output (24 Hrs) 08/19/17 08/20/17 08/21/17 05:59 05:59 05:59 Intake Total 419 Balance 419 Intake: Oral (ml) 200 IV Infused (ml) 219 Heparin/Dextrose 500 ml @ 219 Per Protocol IV CONT RYLIE Rx#:[id number] Other: Weight 69.5 kg Number of Voids Toilet 3 Result Diagrams: 08/19/17 04:30 08/19/17 04:30 - Physical Exam Constitutional: healthy appearing Eyes: PERRL Ears, Nose, Mouth, Throat: moist mucous membranes Cardiovascular: regular rate and rhythm, systolic murmur Peripheral Pulses: 1+: femoral (R), femoral (L) Respiratory: clear to auscultate bilat Gastrointestinal: normoactive bowel sounds Genitourinary: no suprapubic tenderness Skin: no rashes Musculoskeletal: no muscular tenderness Neurologic: AAOx3 Psychiatric: cooperative Lymph, Heme, Immunologic: no lymphadenopathy ICD10 Worksheet Patient Problems: Problems Problem Status Onset Chronic Disease Mgmt/Transitional Care Acute Congestive heart failure Acute
[2017-08-20 07:36] LABS: INR 1.58 (0.83-1.16)
[2017-08-20] MEDS: FAMOTIDINE 20 MG TAB PO SCH (08:32)
[2017-08-20] MEDS ORDERED: NS 500 ML IV ONE (10:00)
[2017-08-20] MEDS: OMEGA-3 FATTY ACIDS 1,000 MG CAP PO SCH (11:20)
[2017-08-20] MEDS: MULTIVITAMINS 1 EACH TAB PO SCH (11:20)
[2017-08-20 11:24] VITALS: BP 100/47; PULSE 65; RESP 20; O2SAT 100
[2017-08-20] MEDS ORDERED: IOPAMIDOL (ISOVUE 370) 100 ML BTL IV ONE (11:24)
[2017-08-20 11:42] VITALS: TEMP 97.9
--- NOTE | 2017-08-20 15:45 | ASDISCHSUM ---
Discharge Information Plan Status:Home with No Needs Medically Cleared to Leave:08/19/2017 Discharge Date:08/20/2017 03:15 PM CM D/C Disposition:Home, Routine, Self-Care ADT D/C Disposition:Home, Routine, Self-Care Projected Discharge Date:08/20/2017 12:00 AM Transportation at D/C:Family Discharge Delay Reason: Follow-Up Date:08/20/2017 12:00 AM Discharge Slot: Final Diagnosis:Severe , Non ST SD Placement Information Patient Contact Information Contact Name:JOJO Relationship: Address:[address] Work Phone: City:[facility] Phone: State/Zip Code:[place] [address] Email: Financial Information Financial Class:Medicare [employer] Plans Primary Plan Desc:[facility] [employer] [facility] Primary Plan Number:[id number] Secondary Plan Desc: Secondary Plan Number: Assessment Information [facility] CM Progress Note CM Note CM Note Notes: 82 year old male admitted for CP. Has a hx of CABG x 2, Cardiomyopathy, HTN,HLD, Pacer. Went to the labor and employment paralegal today and to continue with medications. Possible discharge Saturday. Patient lives with his . No discharge needs anticipated at this time. Date Signed: 08/19/2017 04:25 PM Electronically Signed By:Kiesha Bryant LCSW Case Management Discharge Plan Note Case Management Discharge Discharge Order Complete? Answers: Yes Followup Appointment 08/20/2017 12:00 AM Patient to Obtain Answers: via Family Medications Transportation Arranged Answers: Family/Friends Transport will Pick (Date 08/20/2017 12:00 AM & Time) Family Notified Answers: Yes Notes: Family to transport Discharge Comments Notes: Patient has been discharged. Considering having a TAVR at a later date. No other needs at this time. Date Signed: 08/20/2017 03:42 PM Electronically Signed By:Kiesha Bryant LCSW Intervention Information Intervention Type:*ROJAS-Signed Date of Service:08/19/2017 04:14 PM Patient Type:Observation Staff Member:Caitlyn Son Hours: Discipline: Severity: Comment:
[2017-08-20] MEDS ORDERED: WARFARIN SODIUM 5 MG TAB PO SCH (16:00)
--- NOTE | 2017-08-20 18:25 | PDDCSUM ---
Discharge Summary Discharge Summary: DISCHARGE SUMMARY FOLLOW-UP ITEMS: Outpatient reassessment for TAVR DATE OF ADMISSION: 08/18/2017 DATE OF DISCHARGE: 08/20/2017 DISCHARGE DIAGNOSES: 1. Non ST-elevation myocardial infarction, type 2 2. Severe aortic valve stenosis 3. Recurrent venous thromboembolism 4. Chronic systolic congestive heart failure with ischemic cardiomyopathy 5. Chronic kidney disease stage 3 6. Chronic cough CONSULTATIONS: Interventional Cardiology PROCEDURES / IMAGING: Left heart catheterization demonstrating significant [place] vessel coronary artery disease but patent grafts, not requiring further PCI Echocardiogram demonstrating severe aortic stenosis, no evidence of left ventricular thrombus on definity study CHIEF COMPLAINT: Right-sided chest pain SUBJECTIVE: Patient is feeling well at time discharge, no further chest pain, ambulating well PHYSICAL EXAM ON DISCHARGE: Systolic blood pressure 100, heart rate 60, afebrile overnight, satting well on room air, alert awake oriented x3, heart rhythm is regular, lungs are clear to auscultation bilaterally LABS ON DISCHARGE: Creatinine 1.5, potassium 4, INR 1.58 HOSPITAL COURSE BY PROBLEM: 1. Non ST-elevation myocardial infarction. Present admission, type 2, peak troponin 0.2, catheterization demonstrating significant [place] vessel coronary artery disease with patent grafts, not requiring PCI. This may have been the cause of patient's initial chest pain and he has been advised to utilize sublingual nitroglycerin tabs at home if he experiences recurrence. He is currently on maximal medical therapy with long-acting nitrate, beta-tiffanie, Plavix, statin, COOKIE-inhibitor. The patient did receive an initial heparin drip prior to cardiac catheterization, as his Coumadin was held and his INR was subtherapeutic on presentation. 2. Severe aortic valve stenosis. Severe on cardiac imaging, Cardiology has recommended consideration of TAVR the patient has received staging with CT angiography. He will follow up with them in clinic for further planning. 3. Recurrent venous thromboembolism. Patient is on lifelong systemic anticoagulation with most recent clot in 2009. His Coumadin was held on presentation for cardiac procedure, and has been re-initiated. He should have repeat PT and INR per his regular schedule as an outpatient, to be coordinated through [facility]. He does not require bridging therapy at this time, as his most recent clot is over 7 years ago, and his home dosage of Coumadin has been restarted at discharge. 4. Chronic systolic congestive heart failure with ischemic cardiomyopathy. The patient did not demonstrate any evidence of acute exacerbation, he was continued on his home dosage of Lasix. I recommended holding his home dosage of COOKIE-inhibitor given his marginally low systolic blood pressures around 100, as well as contrast load received during his catheterization and CT angiography. Recommended that he reinitiate his COOKIE-inhibitor under the direction of [facility], and he hold until he has been seen as blood pressure reassessed, as well as his renal function. 5. Chronic kidney disease stage 3. Baseline creatinine is between 1.11.3, marginally elevated at time of discharge to 1.5, should have repeat labs performed when he follows up with [facility] later this week. 6. Chronic cough. Chest x-ray demonstrated no infiltrate, may be related COOKIE- inhibitor, recommend he follow up with [facility] to reassess this. DISCHARGE MEDICATIONS: Please see official discharge medication reconciliation sheet in chart , continue all home medications with the addition of as needed sublingual nitroglycerin. DISCHARGE INSTRUCTIONS: Please follow up with [facility] later this week, to reassess blood pressure , have PT INR creatinine BUN and lytes checked, receive counseling regarding possible TAVR. TIME SPENT: Greater than 30 minutes were spent on direct patient care, as well as discharge planning and preparation.
== END 2017-08-20 15:15 | disposition home or self-care (01) | DRG 281 ==
LOC: CED 06:13 → CEDHOLD 07:07 → F2N 09:34 → OBSVTOIN 08-19 16:51
PROVIDERS: ADMIT Family Medicine; ATTEND Internal Medicine Cardiovascular Disease
PROC: B2131ZZ Fluoroscopy of Multiple Coronary Artery Bypass Grafts using Low Osmolar Contrast (ICD-10-PCS; principal; 2017-08-19)
PROC: B2161ZZ Fluoroscopy of Right and Left Heart using Low Osmolar Contrast (ICD-10-PCS; principal; 2017-08-19)
PROC: B2181ZZ Fluoroscopy of Left Internal Mammary Bypass Graft using Low Osmolar Contrast (ICD-10-PCS; principal; 2017-08-19)
PROC: B2171ZZ Fluoroscopy of Right Internal Mammary Bypass Graft using Low Osmolar Contrast (ICD-10-PCS; principal; 2017-08-19)
PROC: 4A023N7 Measurement of Cardiac Sampling and Pressure, Left Heart, Percutaneous Approach (ICD-10-PCS; principal; 2017-08-19)
DX: I21.4 Non-ST elevation (NSTEMI) myocardial infarction (principal); I25.10 Atherosclerotic heart disease of native coronary artery without angina pectoris; I35.0 Nonrheumatic aortic (valve) stenosis; I25.5 Ischemic cardiomyopathy; I50.22 Chronic systolic (congestive) heart failure; I12.9 Hypertensive chronic kidney disease with stage 1 through stage 4 chronic kidney disease, or unspecified chronic kidney disease; N18.3 Chronic kidney disease, stage 3 (moderate); R05 Cough; Z95.1 Presence of aortocoronary bypass graft; Z86.711 Personal history of pulmonary embolism; E78.5 Hyperlipidemia, unspecified; Z95.0 Presence of cardiac pacemaker; Z79.01 Long term (current) use of anticoagulants; Z85.46 Personal history of malignant neoplasm of prostate
CPT/HCPCS: 71045-PO; 80048-PO; 80076-PO; 82550-PO; 82553-PO; 83690-PO; 83735-PO; 83880-PO; 84484-PO; 85025-PO; 85520-90; 85610-PO; 85730-PO; C1760; C1769; G0378; J0461; J1250; J1644; J2250; J3010; Q9957; Q9967

== ENCOUNTER 2017-08-20 23:34 | Observation (INO) | payer OTHER ==
--- NOTE | 2017-08-20 23:46 | EDPHY ---
H & P Stated Complaint: dull burning mid CP started at 2100 HPI/ROS: HPI CHIEF COMPLAINT: Chest pain HISTORY OF PRESENT ILLNESS: This very pleasant 82-year-old male with significant coronary artery disease, recent hospitalization for non STEMI and underwent left heart catheterization, presents emergency room with chest pain. He states since around 830 this evening he developed some chest discomfort a dull ache in the center of his chest he does not radiate anywhere. He states he took 3 nitroglycerin which improved his pain from 8/10 to 4/10 however eggs continues to have pain. It has been present for the past 3 hr. He denies any nausea, he does state that he short of breath but this is not new. He denies recent illness or fever vomiting. Denies productive cough. Past Medical History: History of a non STEMI recent hospitalization on August 20 for the non STEMI, severe aortic valve stenosis, thromboembolic disease, congestive heart failure with ischemic cardiomyopathy, CKD stage 3, recent left heart catheterization, revealed significant coronary artery disease Past Surgical History: CABG, left chest AICD Social History: Denies daily use drugs alcohol tobacco products Family History: Noncontributory ROS REVIEW OF SYSTEMS: A comprehensive 10 point review of systems is otherwise negative aside from elements mentioned in the history of present illness. Exam Constitutional appears well nontoxic no acute distress triage nursing summary reviewed, vital signs reviewed, awake/alert. Eyes normal conjunctivae and sclera, EOMI, PERRLA. HENT normal inspection, atraumatic, moist mucus membranes, no epistaxis, neck supple/ no meningismus, no raccoon eyes. Respiratory clear to auscultation bilaterally, normal breath sounds, no respiratory distress, no wheezing. Cardiovascular rate normal, regular rhythm, no murmur, no edema, distal pulses normal. Gastrointestinal soft, non-tender, no rebound, no guarding, normal bowel sounds, no distension, no pulsatile mass. Genitourinary no CVA tenderness. Musculoskeletal no midline vertebral tenderness, full range of motion, no calf swelling, no tenderness of extremities, no meningismus, good pulses, neurovascularly intact. Skin pink, warm, & dry, no rash, skin atraumatic. Neurologic awake, alert and oriented x 3, AAOx3, moves all 4 extremities equally, motor intact, sensory intact, CN II-XII intact, normal cerebellar, normal vision, normal speech. Psychiatric normal mood/affect. Heme/Lymph/Immune no lymphadenopathy. Differential diagnosis includes but is not limited to: ACS, atypical chest pain , pneumothorax, pneumonia, pulmonary embolism, aortic dissection, congestive heart failure, tumor, musculoskeletal pain, esophageal pain, GERD, peptic ulcer disease, pancreatitis Medical Decision Making: Plan for this patient full cotton picker, IV establishment, obtain troponin, EKG, full-dose aspirin, nitroglycerin for chest discomfort, chest x-ray and re-evaluate. EKG interpretation by me on record in [employer] system. Impression time of EKG 2346, this is sinus rhythm rate of 71 nonspecific intraventricular conduction delay Q-waves noted inferior leads to 3 AVF, T-wave abnormality and flattening in to 3 AVF, additionally slight ST depression in V4 V5 V6. Similar to previous EKG dated 08/19/2017. Re-evaluation: 1240: Patient re-evaluated this time chest pain-free. 0129AM: Patient no acute distress. Patient resting. Patient be readmitted back to the hospital for chest pain with a positive troponin. I do understand he is having a maximal medical therapy however patient has ongoing angina. Patient would like to be readmitted to the hospital for pain control. Spoke with the hospitalist service Dr. Huertas who agrees to admit the patient. at time of admission patient hemodynamically stable CP free. Source: Patient - Personal History Current Tetanus/Diphtheria Vaccine: Yes Current Tetanus Diphtheria and Acellular Pertussis (TDAP): Yes Tetanus Vaccine Date: unknown - Medical/Surgical History Hx Asthma: No Hx Chronic Respiratory Disease: No Hx Diabetes: No Hx Cardiac Disease: Yes Hx Renal Disease: Yes Hx Cirrhosis: No Hx Alcoholism: No Hx HIV/AIDS: No Hx Splenectomy or Spleen Trauma: No Other PMH: CAD,HTN, CHF, STENTS,CABG x 2, pacemaker insertion 10/29, PE prostate cancer, gi bleed, CRI, angio 08/19 - Social History Smoking Status: Never smoked Constitutional: Initial Vital Signs Temperature (C) 36.9 C 08/20/17 23:36 Heart Rate 71 08/20/17 23:36 Respiratory Rate 16 08/20/17 23:36 Blood Pressure 125/60 H 08/20/17 23:36 O2 Sat (%) 97 08/20/17 23:36 O2 Delivery Mode Room Air Allergies/Adverse Reactions: Penicillins Allergy (Severe, Verified 08/20/17 23:35) Hives Home Medications: Medication Instructions Recorded Atorvastatin Calcium [Lipitor 80 80 mg PO DAILY@01/18/15 mg] Carvedilol [Coreg (*)] 6.25 mg PO BIDMEAL@,01/18/15 Clopidogrel Bisulfate [Plavix (*)] 75 mg PO DAILY@01/18/15 Isosorbide Mononitrate [Imdur 30 30 mg PO BID@,01/18/15 mg (*)] Multivitamins [Multivitamin (*)] 1 tab PO DAILY@01/18/15 [place]-3 Fatty Acids [Fish Oil 1000 1,000 mg PO DAILY@01/18/15 mg (*)] Ranolazine [Ranexa] 500 mg PO DAILY@01/18/15 Warfarin Sodium [Coumadin 5MG (*)] 2.5 mg PO SUMOWETHFRSA@01/18/15 Warfarin Sodium [Coumadin 5MG (*)] 5 mg PO TU@01/18/15 Furosemide [Lasix 20 MG (*)] 20 mg PO DAILY@08/18/17 Potassium Cl [Klor-Con 10 meq (RX)] 10 meq PO DAILY@08/18/17 Nitroglycerin [Nitrostat 0.4 mg 0.4 mg SL Q5M PRN #20 btl 08/20/17 (*)] Medical Decision Making - Data Points Laboratory Results: Laboratory Results 08/20/17 23:55 08/20/17 23:55 Medications Given: Hydrocodone Bitart/Acetaminophen (Bradley 5/325) 1 - 2 tab PO Q4HRS PRN PRN Reason: Pain, Moderate Able to Take PO Stop: 08/31/17 01:28 Last Admin: 08/21/17 15:11 Dose: 2 tab Atorvastatin Calcium (Lipitor) 80 mg PO DAILY@1700 [facility] Stop: 02/17/18 16:59 Last Admin: 08/21/17 16:33 Dose: 80 mg Carvedilol (Coreg) 6.25 mg PO BIDMEAL@ RYLIE Stop: 02/17/18 16:59 Last Admin: 08/21/17 16:33 Dose: 6.25 mg Isosorbide Mononitrate (Imdur) 30 mg PO BID@ RYLIE Stop: 02/17/18 16:59 Last Admin: 08/21/17 16:33 Dose: 30 mg Morphine Sulfate (Morphine) 1 - 2 mg IVP Q1HR PRN PRN Reason: Pain, Severe Unable to Take PO Stop: 08/31/17 01:28 Last Admin: 08/21/17 13:27 Dose: 2 mg Multivitamins (Tab-A-Otoniel) 1 each PO DAILY@12 [facility] Stop: 02/17/18 11:59 Last Admin: 08/21/17 15:17 Dose: 1 each [id number] Ethyl Esters (Fish Oil) 1,000 mg PO DAILY@12 [facility] Stop: 02/17/18 11:59 Last Admin: 08/21/17 15:17 Dose: 1,000 mg Warfarin Sodium (Message-Coumadin Daily Order) 1 ea MISC DAILY@1500 [facility] Stop: 02/17/18 14:59 Last Admin: 08/21/17 16:17 Dose: Not Given Discontinued Medications Aspirin (Aspirin) 324 mg PO EDNOW ONE Stop: 08/20/17 23:48 Last Admin: 08/21/17 02:26 Dose: Not Given Diazepam (Valium) 5 mg PO ONCALL ONE Stop: 08/21/17 09:36 Last Admin: 08/21/17 09:58 Dose: 5 mg Diphenhydramine HCl (Benadryl) 25 mg PO ONCALL ONE Stop: 08/21/17 09:36 Last Admin: 08/21/17 09:58 Dose: 25 mg Famotidine (Pepcid) 20 mg PO ONCALL ONE Stop: 08/21/17 09:36 Last Admin: 08/21/17 09:59 Dose: 20 mg Warfarin Sodium (Coumadin) 5 mg PO ONCE ONE Stop: 08/21/17 03:01 Last Admin: 08/21/17 03:07 Dose: 5 mg Warfarin Sodium (Coumadin) 5 mg PO ONCE@1600 ONE Stop: 08/21/17 16:01 Last Admin: 08/21/17 16:33 Dose: 5 mg Departure - Departure Disposition: [facility] Acute Clinical Impression: Chest pain Qualifiers: Chest pain type: unspecified Qualified Code(s): R07.9 - Chest pain, unspecified Aortic stenosis Qualifiers: Cardiac valve disease etiology: etiology unspecified Qualified Code(s): I35.0 - Nonrheumatic aortic (valve) stenosis Condition: Fair
[2017-08-20] MEDS ORDERED: ASPIRIN 81 MG CHEWABLE TAB PO ONE (23:47)
[2017-08-20] MEDS ORDERED: NITROGLYCERIN 0.4 MG BTL SL PRN (23:47)
--- NOTE | 2017-08-20 23:49 | CPEKG ---
Heart Rate: 71 RR Interval: 845 P-R Interval: 180 QRSD Interval: 128 QT Interval: 420 QTC Interval: 457 P [place]: 50 QRS [place]: 34 T Wave [place]: 187 EKG Severity - ABNORMAL ECG - EKG Impression: SINUS RHYTHM EKG Impression: NONSPECIFIC INTRAVENTRICULAR CONDUCTION DELAY EKG Impression: PROBABLE LVH WITH SECONDARY REPOL ABNRM EKG Impression: INFERIOR INFARCT, AGE INDETERMINATE Electronically Signed By: Len Forbes 21-Aug-2017 06:59:32
[2017-08-21 00:08] LABS: PLATELET COUNT 150 10^3/uL (150-400)
[2017-08-21 00:22] LABS: CREATINE KINASE 69 IU/L (0-224)
[2017-08-21 00:49] LABS: INR 1.44 (0.83-1.16); PROTIME(PATIENT) 17.7 SEC (12.0-15.0)
[2017-08-21] MEDS ORDERED: HYDROCODONE/APAP 5/325 TAB PO PRN (01:29)
[2017-08-21] MEDS ORDERED: ONDANSETRON DISINTEGRATING 4 MG TAB PO PRN (01:29)
[2017-08-21] MEDS ORDERED: ONDANSETRON 4 MG/2 ML VIAL IVP PRN (01:29)
[2017-08-21] MEDS ORDERED: ACETAMINOPHEN 325 MG TAB PO PRN (01:29)
[2017-08-21] MEDS ORDERED: NITROGLYCERIN 0.4 MG BTL SL PRN (01:33)
[2017-08-21] MEDS ORDERED: WARFARIN SODIUM 5 MG TAB PO ONE ×2 (03:00→16:00)
[2017-08-21 05:48] LABS: PLATELET COUNT 136 10^3/uL (150-400)
[2017-08-21 06:08] LABS: INR 1.45 (0.83-1.16); PROTIME(PATIENT) 17.8 SEC (12.0-15.0)
--- NOTE | 2017-08-21 09:20 | GHP ---
[f rep st] HISTORY AND PHYSICAL DATE OF ADMISSION: 08/21/2017 PRIMARY CARE PHYSICIAN: Tani Michael M.D. SOURCE: Patient provides history, appears reliable. His EMR was reviewed. The patient was just dis charged a day prior to admission. CHIEF COMPLAINT: Chest pain. HISTORY OF PRESENT ILLNESS: This is a very pleasant 82-year-old gentleman with past medical history significant for coronary artery disease status post CABG x2 and cardiac cath who was maximized on med ical management as well as aortic stenosis, history of PE on Coumadin, sick sinus syndrome status pos t pacer and multivalvular heart disease including aortic, mitral, tricuspid, hypertension, hyperlipid emia, presents to the emergency department this morning with complaints of recurrence. Patient repor ts his pain started approximately 9 p.m. waking him from sleep. He took nitroglycerin and attempted to go back to sleep. However, an hour later the patient developed chest pain again and again took th e nitroglycerin. It discontinued until about 4 a.m. when patient decided that he wanted to come to [facility] emergency department for evaluation of the recurrent chest pain at approximately 4 a.m. Patient d oes report chest pain is sharp and constant, substernal without any radiation, similar to his previou s chest pain for which he was admitted 2 days ago with an . He also had associated shortne ss of breath, sweatiness. No nausea, vomiting, or increase in edema. The patient reports he has a c hronic cough. No fevers, chills. REVIEW OF SYSTEMS: Negative except as noted above. ALLERGIES: Penicillin. HOME MEDICATIONS: Lasix 20 mg p.o. daily, Plavix 75 mg p.o. daily, Coreg 6.25 mg p.o. twice daily, a torvastatin 80 mg p.o. daily, Coumadin 5 mg p.o. on Tuesdays, 2.5 mg p.o. all other days, Ranexa 500 mg p.o. daily, potassium chloride 10 mEq p.o. daily, fish oil 1000 mg p.o. daily, nitroglycerin subli ngual q.5h p.r.n., multivitamin p.o. daily, Imdur 30 mg p.o. twice daily. PAST MEDICAL HISTORY: Significant for CAD status post CABG x2 with cardiac cath, ischemic cardiomyop athy, last EF 20%, benign essential hypertension, hyperlipidemia, prostate cancer status post radiati on seeding, sick sinus syndrome status post pacer, multivalvular heart disease including aortic steno sis, mitral tricuspid. PAST SURGICAL HISTORY: Significant for pacer placement, CABG x2, cardiac cath, tonsillectomy, adenoi dectomy and radiation bead seeding. FAMILY HISTORY: Significant for coronary artery disease and hypertension. SOCIAL HISTORY: Patient is for 50 years. He does not smoke, drink, or do drugs. PHYSICAL EXAMINATION: VITAL SIGNS: On arrival to the emergency department, blood pressure 125/60, h eart rate 71, respiratory rate 16, O2 saturation 97% on room air with a temperature 36.9. Vitals at time of interview available blood pressure 119/57, heart rate 62, respiratory rate 16. GENERAL: In no acute distress, very pleasant elderly frail-appearing gentleman is lying quietly in bed. He is aw charu, alert, and oriented x4. HEAD: Normocephalic, atraumatic. EYES: Extraocular muscles are intac t. Pupils equal, round, react to light bilaterally and symmetric. No scleral icterus or conjunctiva l injection. Mucous membranes appear moist. NECK: Supple. Trachea midline. CARDIOVASCULAR: Regu lar rate and rhythm with a systolic murmur. No chest wall tenderness to palpation. RESPIRATORY: Un labored breathing. LUNGS: Clear to auscultation bilaterally. No wheezes, rales, or rhonchi appreci ated. RESPIRATORY: Positive bowel sounds, soft, nontender to palpation. No rebound, guarding, or m asses appreciated. : No Candelario in place. No suprapubic tenderness to palpation. EXTREMITIES: Pa tient without any cyanosis, clubbing, or edema. 1+ pedal pulses bilaterally. NEURO: Grossly nonfoc al. No facial drooping. Moves all extremities. Strength intact in upper and lower extremities. PS YCH: Patient awake, alert, and oriented x4. Thought process, content and questions are all appropri ate. LABORATORY STUDIES: WBC 6.60, H and H 14.1 and 41.9, MCV of 90.7, platelet count is 150. PT is 17.7 , INR is 1.44, PTT is 34.9. Sodium 144, potassium 4.1, chloride is 112, CO2 21, anion gap 11, BUN is 20, creatinine 1.5, GFR is 45, glucose 87, calcium 8.9, magnesium 2.1, total bilirubin is 1.0, ALT i s 29, AST 22, alkaline phosphatase is 67, total protein 6.2, albumin 3.7. CK 69, CK-MB is 1.69, trop onin 0.070. BTNP is . Chest x-ray image report reviewed myself showing pacer, cardiomegaly, pulmonary vascular congestion a nd sternotomy wires without any focal consolidations. EKG reviewed myself showing sinus rhythm in the 70s, LVH with repolarization changes inferior infarct with Q-waves in the 2, 3, AVF. Compared to the EKG from 08/19/2016 with no significant changes. ASSESSMENT AND PLAN: A pleasant 82-year-old gentleman known with significant coronary artery disease , maximized on medical therapy who presents with recurrent chest pain. 1. Unstable angina. Patient with recent in the last 48 hours, maximized on medical manage ment. The patient did respond to an additional dose of nitroglycerin received in the emergency depar tment and has not had any recurrence since that time. Troponin is slightly elevated at 0.07, down fr om a troponin of 0.203 on 08/18/2017. We will continue to trend. Continue patient's home medication s. Further discussion with Cardiology if patient has recurrence of his chest pain. Patient is alalondraa pineda scheduled outpatient for evaluation of a possible valve replacement at the end of this week. Cont inue to monitor on telemetry for observation. 2. 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 Plan as above. Continue darius ent's statin, beta tiffanie, Plavix, aspirin, Imdur and Ranexa. 3. History of chronic pulmonary embolus. Patient's INR remained subtherapeutic. Pharmacy consultat ion to assist with dosing. 4. Valvular heart disease as above. 5. Ischemic cardiomyopathy. Last ejection fraction of 35%. Continue patient's home medications as above. 6. Benign essential hypertension. Blood pressure is acceptable at this time. Continue patient's be ta tiffanie and Imdur as above. 7. Hyperlipidemia. Continue statin. 8. Fluid, electrolyte, nutrition. Saline lock IV, cardiac diet, low sodium. Electrolyte replacemen t monitoring replacement if needed. Continue patient's potassium chloride. 9. Prophylaxis. Patient is already on Coumadin and he is subtherapeutic but no additional anticoagu lation will be given. Sequential compression devices (SCDs. 10. Core status is DNR DNI. Patient's is MD OROZCO. DISPOSITION: Patient is admitted to observation on telemetry unit for close cardiac monitoring for a ny further recurrence of chest pain. /[id number]/MODL
[2017-08-21] MEDS ORDERED: TEMAZEPAM 15 MG CAP PO PRN (09:35)
[2017-08-21] MEDS ORDERED: FAMOTIDINE 20 MG TAB PO ONE (09:35)
[2017-08-21] MEDS ORDERED: diphenhydrAMINE 25 MG CAP PO ONE (09:35)
[2017-08-21] MEDS ORDERED: DIAZEPAM 5 MG TAB PO ONE (09:35)
--- NOTE | 2017-08-21 10:05 | CPEKG ---
Heart Rate: 60 RR Interval: 1000 P-R Interval: 172 QRSD Interval: 128 QT Interval: 436 QTC Interval: 436 P [place]: -24 QRS [place]: 43 T Wave [place]: 177 EKG Severity - ABNORMAL ECG - EKG Impression: SINUS RHYTHM EKG Impression: NONSPECIFIC INTRAVENTRICULAR CONDUCTION DELAY EKG Impression: INFERIOR INFARCT, AGE INDETERMINATE Electronically Signed By: Clem Aguiar 25-Aug-2017 10:32:28
[2017-08-21] MEDS ORDERED: MIDAZOLAM 2 MG/2 ML VIAL ONE (10:20)
[2017-08-21] MEDS ORDERED: LIDOCAINE 1% 300 MG/30 ML SDV ONE (10:20)
[2017-08-21] MEDS ORDERED: fentaNYL 100 MCG/2 ML INJ ONE (10:20)
[2017-08-21] MEDS ORDERED: HEPARIN 10,000 UNIT/10 ML MDV (1,000 UNIT/ML) ONE (10:20)
[2017-08-21] MEDS ORDERED: IOPAMIDOL (ISOVUE-370) 150 ML BTL IV ONE (10:20)
[2017-08-21] MEDS ORDERED: ATROPINE SULFATE 1 MG/10 ML SYR ONE ×2 (10:22→12:46)
--- NOTE | 2017-08-21 10:26 | GCON ---
[f rep st] CONSULTATION CARDIOLOGY CONSULT DATE OF CONSULTATION: 08/21/2017 CHIEF COMPLAINT: Chest pain. HISTORY OF PRESENT ILLNESS: This is an 82-year-old male with history of ischemic cardiomyopathy with known severe aortic stenosis, who was just recently discharged from [facility]. The p francisco actually underwent a cardiac catheterization 48 hours ago, which showed patent saphenous vein graft as well as patent FARA and TORRES grafts. The patient did however have severe aortic stenosis as documented by dobutamine stress echo given his reduced ejection fraction. The patient indicates avtar t he went home yesterday and suddenly at 8:00 p.m. last night, started having substernal chest discom fort. This lasted for 3 hours time, and he took numerous antianginal medications including nitroglyc sarahi and Ranexa with no avail. The patient came to the emergency room where the patient indicated th at currently he feels much better. Troponins were slightly elevated at 0.07; however, this is less t castañeda his troponin level was 48 hours ago. Currently he is resting quietly in bed. Blood pressure, he art rate stable. Creatinine is minimally elevated at 1.5. PAST MEDICAL HISTORY: Significant for coronary artery disease, status post bypass surgery x2 separat e times. The patient also has a history of PCI to his saphenous vein graft. EF is currently 35% to 40% on recent echocardiogram. History of hypertension. HOME MEDICATIONS: Please see patient's attached home medication list. SOCIAL HISTORY: Lives by himself. No smoking. No drinking. FAMILY HISTORY: Noncontributory. REVIEW OF SYSTEMS: Patient currently denies any vision changes. No headache. No palpitations. No current chest pain. No abdominal pain. No lower extremity pain. PHYSICAL EXAM: VITAL SIGNS: Patient is currently afebrile 96, blood pressure 110/70 with a heart ra te of 72, respirations 12, 95% on room air. HEENT: Pupils equal round and reactive to light and acc ommodation. Extraocular muscles intact. CARDIOVASCULAR: Regular rate and rhythm. S1-S2. There is a 3/6 systolic murmur heard best at right upper sternal border. LUNGS: Clear to auscultation bilate rally. ABDOMEN: Soft, nontender. No guarding. EXTREMITIES: No cyanosis, no edema. NEUROLOGIC: Alert and oriented x3. LABORATORY VALUES: Currently shows a sodium 142, chloride 112, bicarb 21, BUN 21, creatinine 1.5, po tassium 4.1. INR is 1.4. Hemoglobin 12.6, platelet count of 136. ASSESSMENT/PLAN: Chest pain. At this time, the patient's chest pain is most likely due to his under lying worsening valvular stenosis. We will proceed with a balloon aortic valvuloplasty this morning. Keep the patient n.p.o. I have explained to the patient in depth, this is not a curative procedure but rather a temporizing bridge procedure until his TAVR workup is completed. He has been seen by Lamin Robbins from CT surgery who deemed the patient to be a very high-risk candidate for open AVR. I hav e explained the risks of the balloon aortic valvuloplasty including bleeding, stroke and possible laisha th and the patient understands and agrees with the plan and would like to proceed with this procedure . We will plan this for later this afternoon. /[id number]/MODL
--- NOTE | 2017-08-21 10:36 | PDHPUP ---
History & Physical Update H&P update statement: This history and physical update is based on an assessment of the patient which was completed after admission or registration (within 24 hours), but prior to the surgery/procedure. H&P update: H&P reviewed & patient examined, no change in patient's condition since H&P completed
--- NOTE | 2017-08-21 10:36 | PDPROPOC ---
Sedation Plan of Care Sedation Plan of Care: mental status noted, patient educated of risks, benefits , alternatives, patient can tolerate sedation ASA Classification: ASA 2 Planned drugs: fentanyl, midazolam Mallampati Score: Class 2 Mallampati Reference Image: Patient passed 3-3-2 rule?: Yes
--- NOTE | 2017-08-21 14:42 | CPIP ---
[f rep st] INVASIVE CARDIAC PROCEDURE INDICATION FOR PROCEDURE: Critical aortic stenosis, chest pain. PROCEDURE: 1. Nonselective left groin sheathogram. 2. Abdominal aortogram. 3. Left heart catheterization. 4. valve 20 x 60 balloon. HISTORY: Briefly, this is an 82-year-old male with history of ischemic cardiomyopathy, critical aort ic stenosis as documented by recent dobutamine stress echo. The patient has a known EF of 35% to 40%. The patient was consented for a balloon aortic valvuloplasty as a bridge procedure to eventual TAVR, as he was readmitted with chest pain in the last 24 hours. After informed consent, patient was broug ht to [facility] where the left groin was prepped and draped in the usual sterile fashion. Using lidocaine, a short 8-Filipino sheath placed in left common femoral artery, verified angiographically. This was the n upsized to a 25 cm 8-Filipino sheath due to his significant aortoiliac tortuosity. Patient received 3 000 units heparin IV. The aortic valve was crossed with an AL1 catheter and a straight stiff glidewir e, switched out for a pigtail catheter. Simultaneous pressures were then obtained which showed a mean gradient of approximately 20 mmHg. This obviously underestimated the valve gradient as the patient d oes have a history of reduced cardiac output, ejection fraction, and has had documentable increased g radient across the valve with dobutamine infusion. At this time, the Amplatz superstiff wire was plac ed in the LV. Pigtail catheter was removed. A 20 x 60 balloon was then placed across the valve. Multiple sequential inflations occurred across the valve with the balloon eventually rupturing with the 4th inflation. The balloon was then removed and the catheter was removed and placed into th e LV. Simultaneous pressure was then obtained which showed a mean gradient difference of approximatel y 2 mmHg, predominant reduction of 18 mmHg. The pigtail catheter that was then removed and placed int o the descending aorta where abdominal aortogram was obtained showed patent distal descending aorta, tortuous but patent common external and internal iliac arteries patent, bilateral common femoral elaine leena. At this time, the pigtail catheter was removed wire. The left wire was sutured in p lace. Patient tolerated the procedure well without complications. IMPRESSION: Successful balloon valvuloplasty, reducing mean gradient of approximately 20 down to 2-4 mm. PLAN: The patient will have the sheath discontinued when the ACT is less than 170. If clinically sta ble, will hopefully discharge within 24 hours. The patient will then follow up within our office to radha durán with his family about proceeding with possible TAVR in the near future. /[id number]/MODL
[2017-08-21] MEDS: OMEGA-3 FATTY ACIDS 1,000 MG CAP PO SCH (15:17)
[2017-08-21] MEDS: MULTIVITAMINS 1 EACH TAB PO SCH (15:17)
--- NOTE | 2017-08-21 15:35 | ASMTCASEMG ---
Living Arrangements What is your living Answers: With Spouse arrangement? Who do you live with? Type Of Residence What kind of residence do Answers: House you live in? Discharge Plan Comments Coordination Status Comments Notes: CM discussed pts case in morning rounds w/ Dr. Ramos and JARROD Greco regarding d/c POC. Pt is a 82 y/o man admitted for chest pain. Pt is having a balloon angioplasty today. Pt is scheduled to have a TAVR on 09/02/17. No therapies ordered at this time. Pt will most likely d/c with cardiac rehab. CM available for changes. Plan: Independent Date Signed: 08/21/2017 03:34 PM Electronically Signed By:BUCKY Barger
--- NOTE | 2017-08-21 16:03 | HOSPPROG ---
Hospitalist Progress Note Assessment/Plan: new patient encounter 82 yo male with recent NSTEMI and severe admitted for recurrent CP #Chest pain likely as a result of severed #Severe Aortic Stenosis #CHF #Recurrent VTE #Chronic AC Plan: -Cards will consult with plan for Balloon aortic valvuloplasty as a bridge to eventual TAVR -cont home meds as appropriate -will monitor overnight s/p procedure -change to inpatient -D/W cards Subjective: no cp or sob. afebrile Objective: Vital Signs Temp Pulse Resp BP Pulse Ox 36.5 C 61 15 125/54 H 89 L 08/21/17 15:06 08/21/17 15:06 08/21/17 15:06 08/21/17 15:06 08/21/17 15:06 Laboratory Results 08/21/17 05:34 08/20/17 08/21/17 08/22/17 05:59 05:59 05:59 Intake Total 200 Balance 200 PT 17.8 SEC (12.0-15.0) H 08/21/17 05:34 INR 1.45 (0.83-1.16) H 08/21/17 05:34 - Physical Exam Constitutional: no apparent distress Eyes: PERRL, EOMI Ears, Nose, Mouth, Throat: moist mucous membranes, hearing normal Cardiovascular: regular rate and rhythym Respiratory: no respiratory distress, no rales or rhonchi, clear to auscultation Gastrointestinal: normoactive bowel sounds, soft, non-tender abdomen Skin: warm Neurologic: AAOx3 Psychiatric: interacting appropriately, not anxious, not encephalopathic Lymph, Heme, Immunologic: No petechiae ICD10 Worksheet Patient Problems: Problems Problem Status Onset Chest pain Acute Chronic Disease Mgmt/Transitional Care Acute Congestive heart failure Acute
[2017-08-21] MEDS: ISOSORBIDE MONONITRATE 30 MG TAB.SR PO SCH (16:33)
[2017-08-21] MEDS: CARVEDILOL 6.25 MG TAB PO SCH (16:33)
[2017-08-21] MEDS: ATORVASTATIN CALCIUM 40 MG TAB PO SCH (16:33)
[2017-08-22] MEDS ORDERED: CLOPIDOGREL BISULFATE 75 MG TAB PO SCH (05:00)
[2017-08-22] MEDS ORDERED: POTASSIUM CL 10 MEQ TAB PO SCH (05:00)
[2017-08-22] MEDS ORDERED: RANOLAZINE 500 MG TAB.ER PO SCH (05:00)
[2017-08-22] MEDS ORDERED: FUROSEMIDE 20 MG TAB PO SCH (05:00)
[2017-08-22 05:02] LABS: INR 1.48 (0.83-1.16); PROTIME(PATIENT) 18.1 SEC (12.0-15.0)
[2017-08-22 05:53] LABS: PLATELET COUNT 138 10^3/uL (150-400)
--- NOTE | 2017-08-22 07:18 | PDCARPN ---
Cardiology Progress Note Chief Complaint: CP Assessment/Plan: Assessment: ischemic CM severe CABG Plan: 08/22/17 07:16 Doing well s/p BAV Cr improved BP soft but stable OOB Plan d/c home if clinically stable f/u in office with family on 08/23 if d/c today Subjective: stable Reviewed/Discussed With: multidisciplinary team Time Spent With Patient: 25 min Objective: Vital Signs (8 Hrs) Temp Pulse Resp BP Pulse Ox 08/22/17 03:20 36.7 C 58 L 15 109/54 L 98 Intake/Output (24 Hrs) 08/21/17 08/22/17 08/23/17 05:59 05:59 05:59 Intake Total 200 1000 Output Total 2100 Balance 200 -1100 Intake: Oral (ml) 200 1000 Output: Urine (ml) 2100 Toilet 2100 Other: Weight 68.039 kg 70 kg Intake Quantity Yes Sufficient Number of Voids Toilet 1 1 Result Diagrams: 08/22/17 03:11 08/22/17 03:11 Cardiac Labs: Cardiac Lab Results (72 Hrs) 08/21/17 05:34 Troponin I 0.075 H - Physical Exam Constitutional: healthy appearing Eyes: PERRL Ears, Nose, Mouth, Throat: moist mucous membranes Cardiovascular: regular rate and rhythm, systolic murmur Peripheral Pulses: 1+: femoral (R), femoral (L) Respiratory: clear to auscultate bilat Gastrointestinal: normoactive bowel sounds Genitourinary: no suprapubic tenderness Skin: no rashes Musculoskeletal: no muscular tenderness Neurologic: AAOx3 Psychiatric: cooperative ICD10 Worksheet Patient Problems: Problems Problem Status Onset Aortic stenosis Acute Chest pain Acute Chronic Disease [facility]/Transitional Care Acute Congestive heart failure Acute
[2017-08-22] MEDS: CARVEDILOL 6.25 MG TAB PO SCH ×2 (07:26→15:53)
[2017-08-22 08:01] VITALS: TEMP 97.8
[2017-08-22] MEDS: ISOSORBIDE MONONITRATE 30 MG TAB.SR PO SCH (08:46)
--- NOTE | 2017-08-22 12:27 | PDDCSUM ---
Discharge Summary Discharge Summary: 82 yo male with recent NSTEMI and severe admitted for recurrent CP. He had Balloon aortic valvuloplasty as a bridge to eventual TAVR. He is no longer having chest pain. BP has been somewhat soft and meds have been held temporarily. He will f/u with Cards on Saturday. DDX. #Chest pain likely as a result of severed #Severe Aortic Stenosis #CHF #Recurrent VTE #Chronic AC Exam: VSS NAD AAOX3 RRR CTA B S/NT/ND NO LE EDEMA MEDS: SEE MED REC TOTAL TIME SPENT ON D/C INCLUDING COORDINATION WITH NURSE AND AREA MANAGER IS 35 MINS
[2017-08-22] MEDS: MULTIVITAMINS 1 EACH TAB PO SCH (13:25)
[2017-08-22] MEDS: OMEGA-3 FATTY ACIDS 1,000 MG CAP PO SCH (13:25)
[2017-08-22 13:32] VITALS: BP 117/63; PULSE 62; RESP 16; O2SAT 96
[2017-08-22] MEDS: ATORVASTATIN CALCIUM 40 MG TAB PO SCH (15:55)
[2017-08-22] MEDS ORDERED: WARFARIN SODIUM 5 MG TAB PO ONE (16:00)
--- NOTE | 2017-08-23 09:19 | ASDISCHSUM ---
Discharge Information Plan Status:Home with No Needs Medically Cleared to Leave:08/21/2017 Discharge Date:08/22/2017 04:27 PM CM D/C Disposition: ADT D/C Disposition:Home, Routine, Self-Care Projected Discharge Date:08/22/2017 12:00 AM Transportation at D/C: Discharge Delay Reason: Follow-Up Date:08/22/2017 12:00 AM Discharge Slot: Final Diagnosis: Placement Information Patient Contact Information Contact Name:JOJO Relationship: Address:[address] Work Phone: City:[facility] Phone: [facility]/Zip Code:[place] [address] Email: Financial Information Financial Class:Medicare Advantage Plans Primary Plan Desc:[facility] ADVANTAGE PLANS Primary Plan Number:[id number] Secondary Plan Desc: Secondary Plan Number: Assessment Information [facility] Initial CM Assessment Living Arrangements What is your living Answers: With Spouse arrangement? Who do you live with? Type Of Residence What kind of residence do Answers: House you live in? Discharge Plan Comments Coordination Status Comments Notes: CM discussed pts case in morning rounds w/ Dr. Ramos and JARROD Greco regarding d/c POC. Pt is a 82 y/o man admitted for chest pain. Pt is having a balloon angioplasty today. Pt is scheduled to have a TAVR on 09/02/17. No therapies ordered at this time. Pt will most likely d/c with cardiac rehab. CM available for changes. Plan: Independent Date Signed: 08/21/2017 03:34 PM Electronically Signed By:BUCKY Barger Intervention Information Intervention Type:*BOB-Signed Date of Service:08/21/2017 09:49 AM Patient Type:Observation Staff Member:Caitlyn Son Hours: Discipline: Severity: Comment:
== END 2017-08-22 16:27 | disposition home or self-care (01) ==
LOC: F2W 08-21 02:52
PROVIDERS: ADMIT Family Medicine; ATTEND Family Medicine
DX: I35.0 Nonrheumatic aortic (valve) stenosis (principal); I25.119 Atherosclerotic heart disease of native coronary artery with unspecified angina pectoris; I21.4 Non-ST elevation (NSTEMI) myocardial infarction; I11.9 Hypertensive heart disease without heart failure; I25.5 Ischemic cardiomyopathy; E78.5 Hyperlipidemia, unspecified; N18.3 Chronic kidney disease, stage 3 (moderate); Z95.1 Presence of aortocoronary bypass graft; Z95.0 Presence of cardiac pacemaker; Z95.5 Presence of coronary angioplasty implant and graft; Z85.46 Personal history of malignant neoplasm of prostate
CPT/HCPCS: 71045; 75625; 92986; 93005; 99285; C1769; G0378; J1644; J2250; J3010; Q9967; J0461

== ENCOUNTER 2017-09-02 06:08 | Inpatient (IN) | payer OTHER ==
[2017-09-02] MEDS ORDERED: IOPAMIDOL (ISOVUE-370) 150 ML BTL IV ONE (06:37)
[2017-09-02] MEDS ORDERED: MIDAZOLAM 2 MG/2 ML VIAL IVP ONE (06:58)
[2017-09-02] MEDS ORDERED: CLINDAMYCIN 600 MG/DEXTROSE 50 ML IV ONE (07:00)
--- NOTE | 2017-09-02 07:03 | PDANEPAE ---
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) Date Pacemaker Last Checked: 11/05/14 ANE Patient History - Allergies Allergies/Adverse Reactions: Penicillins Allergy (Severe, Verified 08/20/17 23:35) Hives - Home Medications Home Medications: Atorvastatin Calcium [Lipitor 80 mg] 80 mg PO DAILY@01/18/15 [Last Taken ] Carvedilol [Coreg (*)] 6.25 mg PO BIDMEAL@01/18/15 [Last Taken 08/20/17 17 :00] Clopidogrel Bisulfate [Plavix (*)] 75 mg PO DAILY@01/18/15 [Last Taken ] Isosorbide Mononitrate [Imdur 30 mg (*)] 30 mg PO BID@01/18/15 [Last Taken 08/20/17 17:00] Multivitamins [Multivitamin (*)] 1 tab PO DAILY@01/18/15 [Last Taken 08/20/17 ] [place]-3 Fatty Acids [Fish Oil 1000 mg (*)] 1,000 mg PO DAILY@01/18/15 [Last Taken 08/20/17] Ranolazine [Ranexa] 500 mg PO DAILY@01/18/15 [Last Taken 08/20/17] Warfarin Sodium [Coumadin 5MG (*)] 2.5 mg PO SUMOWETHFRSA@01/18/15 [Last Taken 08/17/17 16:00] Warfarin Sodium [Coumadin 5MG (*)] 5 mg PO TU@01/18/15 [Last Taken 08/13/17] - NPO status NPO Status: no food or drink >8 hours - Anes Hx Anes Hx: no prior problems - Smoking Hx Smoking Status: Never smoked - Alcohol Use Alcohol Use: Rarely - Family Anes Hx Family Anes Hx: none ANE Labs/Vital Signs - Labs - CBC WBC: reviewed and ok ANE Physical Exam - Airway Neck exam: decreased ROM Mallampati Score: Class 2 Mouth exam: poor dentition - Pulmonary Pulmonary: no rales or rhonchi - Cardiovascular Cardiovascular: systolic murmur - ASA Status ASA Status: III ANE Anesthesia Plan Anesthesia Plan: general endotracheal anesthesia
[2017-09-02] MEDS ORDERED: PROPOFOL/EMULSION 500 MG/50 ML BOTTLE IV ONE (07:17)
[2017-09-02] MEDS ORDERED: fentaNYL 100 MCG/2 ML INJ ONE (07:17)
[2017-09-02] MEDS ORDERED: REMIFENTANIL HCL 1 MG VIAL ONE (07:17)
[2017-09-02] MEDS ORDERED: LIDOCAINE 2% 100 MG/5 ML SYR ONE (07:20)
[2017-09-02] MEDS ORDERED: LIDOCAINE HCL 160 MG/4 ML LTA KIT TP ONE (07:20)
[2017-09-02] MEDS ORDERED: ONDANSETRON 4 MG/2 ML VIAL ONE (07:21)
[2017-09-02] MEDS ORDERED: DEXAMETHASONE 4 MG/ML VIAL ONE (07:21)
[2017-09-02] MEDS ORDERED: PHENYLEPHRINE HCL 100 MCG/ML SYR ONE ×3 (07:44→08:45)
[2017-09-02] MEDS ORDERED: PHENYLEPHRINE HCL 100 MCG/ML SYR IVP PRN (08:58)
[2017-09-02] MEDS ORDERED: MEPERIDINE 25 MG/ML SYR IVP PRN (08:58)
[2017-09-02] MEDS ORDERED: ONDANSETRON 4 MG/2 ML VIAL IVP PRN (08:58)
[2017-09-02] MEDS ORDERED: PROMETHAZINE HCL 25 MG/ML INJ IVP PRN (08:58)
[2017-09-02] MEDS ORDERED: NALOXONE HCL 0.4 MG/ML INJ IVP PRN (08:58)
[2017-09-02] MEDS ORDERED: LR 500 ML IV PRN (08:58)
[2017-09-02] MEDS ORDERED: HYDROCODONE/APAP 5/325 TAB PO PRN (08:58)
[2017-09-02] MEDS ORDERED: DEXAMETHASONE 4 MG/ML VIAL IVP PRN (08:58)
[2017-09-02] MEDS ORDERED: PROTAMINE SULFATE 50 MG/5 ML VIAL IVP ONE (09:00)
[2017-09-02] MEDS ORDERED: oxyCODONE IR 5 MG TAB PO PRN (09:13)
[2017-09-02] MEDS ORDERED: HYDROmorphONE/DILAUDID 1 MG/ML INJ IVP PRN (09:13)
[2017-09-02] MEDS ORDERED: hydrALAZINE 20 MG/ML VIAL IVP PRN (09:13)
[2017-09-02] MEDS ORDERED: ATROPINE SULFATE 1 MG/10 ML SYR IVP PRN (09:13)
[2017-09-02] MEDS ORDERED: NITROGLYCERIN 0.4 MG BTL SL PRN (09:15)
--- NOTE | 2017-09-02 09:53 | POSTANESTH ---
Post Anesthetic Evaluation Cardiovascular Status: Normal, Stable Respiratory Status: Normal, Stable Level of Consciousness/Mental Status: Can Participate in Eval Pain Control: Adequate, Prn Tx Ordered Nausea/Vomiting Control: Adequate, Prn Tx Ordered Complications Possibly Related to Anesthesia: None Noted
--- NOTE | 2017-09-02 13:39 | CPIP ---
[f rep st] INVASIVE CARDIAC PROCEDURE DATE OF PROCEDURE: 09/02/2017 INDICATION FOR PROCEDURE: Critical aortic stenosis. Ischemic cardiomyopathy. CO-SURGEONS: Dr. Ernie Robbins, Dr. Cristina Delvalle, Dr. Charles Dominguez PROCEDURE: 1. 6-[place]izen [place] sheath left common femoral vein. 2. 8-[place] sheath left common femoral artery, verified angiographically. 3. 6-[place] sheath right common femoral artery upsized to a 20-[place]izen [place]oul[place] sheath after triple Percl ose placements. 4. Aortic root angiography. 5. Left heart catheterization. 6. Placement of Medtronic CoreValve Evolut R 34 mm by the transfemoral route. HISTORY: Briefly, this is an 82-year-old male with history of severe aortic stenosis, ischemic cardi omyopathy, aortic stenosis, verified on dobutamine stress echocardiogram done 1 week ago. Patient un derwent a balloon valvuloplasty post dobutamine stress echo for symptomatic worsening . The patien t was consented for TAVR placement for today. DESCRIPTION OF PROCEDURE: He was brought to [facility] where the patient was electivel y intubated, ELLEN performed by Dr. Cristina Delvalle. Patient was administered 300 mg IV clindamycin prior t o the case. Left groin was prepped and draped in a sterile fashion, 6-Citizen [place] sheath placed in left c ommon femoral vein, 8-Citizen [place] sheath in left common femoral artery verified angiographically. A 6-Mina nch sheath right common femoral artery verified angiographically, upsized to a 20-[place]izen [place] sheath after triple Perclose placements. The aortic valve was subsequently crossed with an AL1 catheter and a straight stiff Glidewire, switched out for a pigtail catheter, switched out for Confida wire. Jose cement of Medtronic 34 mm valve was then advanced and placed across the valve. This was then deploye d successfully at a pacing rate of 100 beats per minute. The deployment was slightly deep at 68 mm; however, there was no significant PVL noted. Patient did have a baseline pacemaker already in place. After deployment of the valve, there was no impingement of the mitral leaflets and no significant P VL noted. The wire was removed. The right groin was closed with a triple Perclose placement. The l eft groin was closed with Angio-Seal as well as manual pressure. Patient tolerated procedure well wi th no complications. IMPRESSION: Successful placement of Medtronic CoreValve 34 mm valve via the transfemoral route. PLAN: The patient will be admitted to ICU. If clinically stable, anticipate step-down within 24 jj rs. /[id number]/MODL
[2017-09-02] MEDS: MULTIVITAMINS 1 EACH TAB PO SCH (15:19)
[2017-09-02] MEDS: OMEGA-3 FATTY ACIDS 1,000 MG CAP PO SCH (15:19)
--- NOTE | 2017-09-02 15:28 | ASMTCMCOM ---
CM Note CM Note Notes: 09/02/2017 Case Management Note Reviewed chart. Pt admitted for TAVR. Case management d/c needs are unclear. Case Management will rely on PT OT CAMPOS chao for help with identifying d/c neeeds. Case management d/c poc: TBD Case Management to follow. Date Signed: 09/02/2017 03:27 PM Electronically Signed By:Nunu Ryan RN
[2017-09-02] MEDS ORDERED: WARFARIN SODIUM 5 MG TAB PO SCH (16:00)
[2017-09-02] MEDS: ISOSORBIDE MONONITRATE 30 MG TAB.SR PO SCH (17:24)
[2017-09-02] MEDS: CARVEDILOL 6.25 MG TAB PO SCH (17:24)
[2017-09-03 05:06] LABS: PLATELET COUNT 145 10^3/uL (150-400)
[2017-09-03 05:11] LABS: INR 1.23 (0.83-1.16); PROTIME(PATIENT) 15.7 SEC (12.0-15.0)
[2017-09-03] MEDS: RANOLAZINE 500 MG TAB.ER PO SCH (05:27)
[2017-09-03] MEDS: CLOPIDOGREL BISULFATE 75 MG TAB PO SCH (05:27)
[2017-09-03] MEDS: ISOSORBIDE MONONITRATE 30 MG TAB.SR PO SCH ×2 (06:38→16:43)
[2017-09-03] MEDS: CARVEDILOL 6.25 MG TAB PO SCH (06:38)
--- NOTE | 2017-09-03 07:54 | PDCARPN ---
Cardiology Progress Note Chief Complaint: SOB Assessment/Plan: Assessment: s/p TAVR ischemic CM CABG Plan: 09/03/17 07:52 doing very well s/p TAVR OOB check labs in AM transfer to step-down hold BP meds 09/03/17 07:53 Subjective: doing great Reviewed/Discussed With: multidisciplinary team Time Spent With Patient: 25 min Objective: Vital Signs (8 Hrs) Temp Pulse Resp BP Pulse Ox 09/03/17 06:38 60 88/38 L 09/03/17 06:00 36.6 C 60 17 88/38 L 98 09/03/17 04:00 36.4 C 55 L 18 90/38 L 94 09/03/17 02:00 36.4 C 55 L 18 94/39 L 94 09/03/17 00:00 36.7 C 62 24 H 100/47 L 94 Intake/Output (24 Hrs) 09/02/17 09/03/17 09/04/17 05:59 05:59 05:59 Intake Total 1300 Output Total 800 Balance 500 Intake: Oral (ml) 1300 Output: Urine (ml) 800 Urinal 800 Other: Weight 65.8 kg Intake Quantity Yes Sufficient Number of Voids Toilet 2 Urinal 1 Result Diagrams: 09/03/17 04:56 09/03/17 04:56 - Physical Exam Constitutional: healthy appearing Eyes: PERRL Ears, Nose, Mouth, Throat: moist mucous membranes Cardiovascular: regular rate and rhythm Peripheral Pulses: 1+: femoral (R), femoral (L) Respiratory: clear to auscultate bilat Gastrointestinal: normoactive bowel sounds Genitourinary: no suprapubic tenderness Skin: no rashes Musculoskeletal: no muscular tenderness Neurologic: AAOx3 Psychiatric: cooperative ICD10 Worksheet Patient Problems: Problems Problem Status Onset Aortic stenosis Acute Chest pain Acute Chronic Disease Mgmt/Transitional Care Acute Congestive heart failure Acute
--- NOTE | 2017-09-03 09:02 | CPEKG ---
Heart Rate: 60 RR Interval: 1000 P-R Interval: 164 QRSD Interval: 126 QT Interval: 452 QTC Interval: 452 P [place]: 20 QRS [place]: 49 T Wave [place]: 167 EKG Severity - ABNORMAL ECG - EKG Impression: SINUS RHYTHM EKG Impression: NONSPECIFIC INTRAVENTRICULAR CONDUCTION DELAY EKG Impression: BORDERLINE INFERIOR Q WAVES EKG Impression: BORDERLINE ST DEPRESSION, LATERAL LEADS Electronically Signed By: Zachariah Russell 05-Sep-2017 13:08:45
--- NOTE | 2017-09-03 10:02 | ECHO ---
[email or web address] [address] [address] Main: [phone] Fax: Transthoracic Echocardiogram Name: XAVIER KOVACS MR#: [id number] Study Date: 09/03/2017 Study Time: 07:55 AM Date of : 1935 Age: 82 year(s) Height: 177.8 cm (70 in.) Weight: 65.77 kg (145 lb.) BSA: 1.82 m2 Gender: Male Examination: Echo Indication: Post TAVR Image Quality: Contrast: Requested by: Brandon Knapp BP: 94 mmHg/45 mmHg Heart Rate: Rhythm: Indication: Post TAVR Procedure Staff Roustabout Crew Pusher: Chencho Curtis RDCS Reading Physician: Brandon Knapp Requesting Provider: Conclusions: The EF is estimated at approximately 40-45%. There is a pacemaker lead noted in the right ventricle. Mild mitral valve regurgitation is present. There is an AV core valve. the AV max is 2.3 m/s with an Ao mean PG of 14 mmHg. There appears to be two different perivalvular leaks. In Apical long axis there is a moderate jet along the basilar anteroseptal to mid anteroseptal wall with a pressure 1/2 time of 476 ms. The second jet appears to be moderate eccentric across the mitral valve annulus along the Basilar inferolateral to mid inferolateral wall with a pressure 1/2 time of 644 ms. There is no central jet of AI noted thru the Core Valve.. No pericardial effusion. Measurements: Chambers Valvular Assessment AV/MV Valvular Assessment TV/PV Normal Normal Normal Name Value Range Name Value Range Name Value Range IVSd (2D): 1.0 cm (0.6 cm-1.1 AV Vmax: 2.44 m/s (1 m/s-1.7 cm) m/s) LVDd (2D): 6.5 cm (4.2 cm-5.9 AV maxP mmHg ( - ) cm) AV meanP mmHg ( - ) LVDs (2D): 5.2 cm (2.1 cm-4 LVOT Vmax: 0.91 m/s (0.7 m/s-1.1 cm) m/s) LVPWd (2D): 1.1 cm (0.6 cm-1 CANDIE (Vmax): 1.8 cm2 ( - ) cm) CANDIE (VTI): 1.7 cm ( - ) LVOTd 2.5 cm 2.5 cm mm AR (PHT): 493 ms ( - ) LVEF (MOD4): 49 % (>=55 %) MV E Vmax: 0.49 m/s ( - ) MV A Vmax: 0.81 m/s ( - ) MV E/A: 0.60 ( - ) MV meanP mmHg ( - ) MVA (Vmax): 3.4 m/s ( - ) Patient: XAVIER KOVACS Study Date: 09/03/2017 Page 1 of 2 07:55 AM Continued Measurements: Chambers Valvular Assessment AV/MV Name Value Name Value LADs Lon.0 cm MV VTI: 29.30 cm LA Area: 25.2 cm2 AR Vmax: 1.62 cm/s Findings: Left Ventricle: Moderately dilated left ventricle. Diastolic dysfunction is present. . The EF is estimated at approximately 40-45%. Right Ventricle: Normal size right ventricle. There is a pacemaker lead noted in the right ventricle. Left Atrium: The left atrium is mildly to moderately dilated. Right Atrium: The right atrium is normal in size. Mitral Valve: The mitral valve is normal in appearance. Mild mitral valve regurgitation is present. Aortic Valve: There is an AV core valve. the AV max is 2.3 m/s with an Ao mean PG of 14 mmHg. There appears to be two different perivalvular leaks. In Apical long axis there is a moderate jet along the basilar anteroseptal to mid anteroseptal wall with a pressure 1/2 time of 476 ms. The second jet appears to be moderate eccentric across the mitral valve annulus along the Basilar inferolateral to mid inferolateral wall with a pressure 1/2 time of 644 ms. There is no central jet of AI noted thru the Core Valve.. Tricuspid Valve: Mild tricuspid regurgitation is present. Pulmonic Valve: Pulmonary valve not well visualized. Aorta: The aorta is normal. Pericardium: No pericardial effusion. (No Signature Object) Patient: XAVIER KOVACS Study Date: 09/03/2017 Page 2 of 2 07:55 AM [id number]
[2017-09-03] MEDS: OMEGA-3 FATTY ACIDS 1,000 MG CAP PO SCH (13:15)
[2017-09-03] MEDS: MULTIVITAMINS 1 EACH TAB PO SCH (13:15)
[2017-09-03] MEDS ORDERED: WARFARIN SODIUM 5 MG TAB PO SCH (16:00)
[2017-09-03] MEDS ORDERED: ATORVASTATIN CALCIUM 40 MG TAB PO SCH (17:00)
[2017-09-04] MEDS: ISOSORBIDE MONONITRATE 30 MG TAB.SR PO SCH (05:58)
[2017-09-04] MEDS: RANOLAZINE 500 MG TAB.ER PO SCH (05:58)
[2017-09-04] MEDS: CLOPIDOGREL BISULFATE 75 MG TAB PO SCH (05:58)
[2017-09-04 06:28] LABS: PLATELET COUNT 123 10^3/uL (150-400)
[2017-09-04 06:46] LABS: INR 1.33 (0.83-1.16); PROTIME(PATIENT) 16.7 SEC (12.0-15.0)
--- NOTE | 2017-09-04 06:54 | PDCARPN ---
Cardiology Progress Note Chief Complaint: SOB Assessment/Plan: Assessment: s/p TAVR ischemic CM CABG Plan: 09/03/17 07:52 doing very well s/p TAVR OOB check labs in AM transfer to step-down hold BP meds 09/03/17 07:53 09/04/17 06:53 doing well d/c home f/u in 1 week Subjective: no complaints Time Spent With Patient: 25 min Objective: Vital Signs (8 Hrs) Temp Pulse Resp BP Pulse Ox 09/04/17 05:58 111/51 L 09/04/17 04:00 60 96/45 L 96 09/04/17 00:00 36.7 C 64 18 116/51 L 96 Intake/Output (24 Hrs) 09/03/17 09/04/17 09/05/17 05:59 05:59 05:59 Intake Total 1300 940 Output Total 800 Balance 500 940 Intake: Oral (ml) 1300 940 Output: Urine (ml) 800 Urinal 800 Other: Weight 65.8 kg Intake Quantity Yes Yes Sufficient Number of Voids Toilet 2 2 Urinal 1 Result Diagrams: 09/04/17 06:00 09/04/17 06:00 - Physical Exam Constitutional: healthy appearing Eyes: PERRL Ears, Nose, Mouth, Throat: moist mucous membranes Cardiovascular: regular rate and rhythm Peripheral Pulses: 1+: femoral (R), femoral (L) Respiratory: clear to auscultate bilat Gastrointestinal: normoactive bowel sounds Genitourinary: no suprapubic tenderness Skin: no rashes Musculoskeletal: no muscular tenderness Neurologic: AAOx3 Psychiatric: cooperative ICD10 Worksheet Patient Problems: Problems Problem Status Onset Aortic stenosis Acute Chest pain Acute Chronic Disease Mgmt/Transitional Care Acute Congestive heart failure Acute
--- NOTE | 2017-09-04 07:11 | GDS ---
[f rep st] DISCHARGE SUMMARY DISCHARGE DIAGNOSIS: Aortic stenosis. HOSPITAL COURSE: Briefly, this is an 82-year-old male with multiple bypass surgeries, chronic ischem ic cardiomyopathy, who was deemed to be a very high-risk candidate for open AVR. The patient underwe nt successful placement of Medtronic CoreValve Evolut R 34 mm valve via the transfemoral route on . Post procedure, the patient has done exceptionally well, ambulating in the halls the day of the procedure. Today, the patient will be discharged with his home medications, including Plavix an d Coumadin. The patient's creatinine has improved from 1.5 baseline to 1.2. The patient is in good spirits and will follow up with us in the office in 1 week. The patient did have a post procedure ec hocardiogram done, which showed improved ejection fraction with normally functioning TAVR with modera te perivalvular leaking. However, the perivalvular leak did not seem to cause any clinical sequela, and if anything, his myocardial function has improved. He will follow up with us in the office in 1 week's time. /[id number]/MODL
[2017-09-04 07:56] VITALS: BP 94/40; PULSE 62; RESP 20; TEMP 97.7; O2SAT 95
--- NOTE | 2017-09-05 16:48 | ASDISCHSUM ---
Discharge Information Plan Status:Home with No Needs Medically Cleared to Leave: Discharge Date:09/04/2017 10:17 AM CM D/C Disposition:Home, Routine, Self-Care ADT D/C Disposition:Home, Routine, Self-Care Projected Discharge Date:09/04/2017 10:17 AM Transportation at D/C:Family Discharge Delay Reason: Follow-Up Date:09/04/2017 10:17 AM Discharge Slot: Final Diagnosis: Placement Information Patient Contact Information Contact Name:JOJO Relationship: Address:[address] Work Phone: City:[place] [facility] Phone: [facility]/Zip Code:[place] [address] Email: Financial Information Financial Class:Medicare Advantage Plans Primary Plan Desc:[facility] ADVANTAGE PLANS Primary Plan Number:[id number] Secondary Plan Desc: Secondary Plan Number: Assessment Information BC CM Progress Note CM Note CM Note Notes: 09/02/2017 Case Management Note Reviewed chart. Pt admitted for TAVR. Case management d/c needs are unclear. Case Management will rely on PT OT CAMPOS chao for help with identifying d/c neeeds. Case management d/c poc: TBD Case Management to follow. Date Signed: 09/02/2017 03:27 PM Electronically Signed By:Nunu Ryan RN Intervention Information Intervention Type:*IM-Signed Date of Service:09/04/2017 10:03 AM Patient Type:Inpatient Staff Member:Caitlyn Son Hours: Discipline: Severity: Comment:
--- NOTE | 2017-09-09 10:05 | ECHO ---
[email or web address] [place] [id number] Main: [phone] Fax: Transesophageal Echocardiography Name: XAVIER KOVACS MR#: [id number] Study Date: 09/02/2017 Study Time: 07:35 AM Date of : 1935 Age: 82 year(s) Height: ( ) Weight: ( ) BSA: Gender: Male Examination: ELLEN Indication: TAVR Image Quality: Contrast: Requested by: Brandon Knapp Heart Rate: Rhythm: BP: / Procedure Staff Program Director/Music Director: Felicia Gentile [facility] Reading Physician: Crsitina Delvalle Requesting Provider: Brandon Knapp ELLEN Exam Details Conclusions: Dilated left ventricle. Estimated ejection fraction pre-TAVR 25% and after TAVR 25-30%. moderate to severe global hypokinesis. Normal size right ventricle. Mildly to moderately reduced right ventricular function. Mitral regurgitation pre-TAVR is mild; post TAVR moderate to severe.. Pre-TAVR AV gradient on dobutamtine stress echo 18 20mcg 4.1m/s with a mean/max PG 68/39mmHg. Post TAVR AV 1.7m/s with a mean/max PG 6/12mmHg. Mild perivalvular leak.. No pericardial effusion. Measurements: Chambers Valvular Assessment AV/MV Valvular Assessment TV/PV Normal Normal Normal Name Value Range Name Value Range Name Value Range LVOTd 2.6 cm 2.6 cm mm AV meanP mmHg ( - ) CANDIE (VTI): 1.7 cm ( - ) MV meanP mmHg ( - ) MVA (Vmax): 3.9 m/s ( - ) Additional Measurements: Valvular Assessment AV/MV Name Value MV VTI: 16.80 cm Patient: XAVIER KOVACS Study Date: 09/02/2017 Page 1 of 2 07:35 AM Findings: Left Ventricle: Dilated left ventricle. Estimated ejection fraction pre-TAVR 25% and after TAVR 25-30%. moderate to severe global hypokinesis. Right Ventricle: Normal size right ventricle. Mildly to moderately reduced right ventricular function. Mitral Valve: Mitral regurgitation pre-TAVR is mild; post TAVR moderate to severe.. Aortic Valve: Pre-TAVR AV gradient on dobutamtine stress echo 08-19-17 20mcg 4.1m/s with a mean/max PG 68/39mmHg. Post TAVR AV 1.7m/s with a mean/max PG 6/12mmHg. Mild perivalvular leak.. Pericardium: No pericardial effusion. l1n (No Signature Object) Patient: XAVIER KOVACS Study Date: 09/02/2017 Page 2 of 2 07:35 AM [id number]
== END 2017-09-04 10:17 | disposition home or self-care (01) | DRG 267 ==
LOC: F3N 06:08 → F2N 09:13
PROVIDERS: ADMIT Internal Medicine Cardiovascular Disease; ATTEND Internal Medicine Cardiovascular Disease
PROC: 02RF38Z Replacement of Aortic Valve with Zooplastic Tissue, Percutaneous Approach (ICD-10-PCS; principal; 2017-09-02)
PROC: 4A023N7 Measurement of Cardiac Sampling and Pressure, Left Heart, Percutaneous Approach (ICD-10-PCS; principal; 2017-09-02)
PROC: B2111ZZ Fluoroscopy of Multiple Coronary Arteries using Low Osmolar Contrast (ICD-10-PCS; principal; 2017-09-02)
DX: I35.0 Nonrheumatic aortic (valve) stenosis (principal); Z00.6 Encounter for examination for normal comparison and control in clinical research program; I25.5 Ischemic cardiomyopathy; I10 Essential (primary) hypertension; E78.5 Hyperlipidemia, unspecified; I25.10 Atherosclerotic heart disease of native coronary artery without angina pectoris; Z85.46 Personal history of malignant neoplasm of prostate; Z95.1 Presence of aortocoronary bypass graft; Z86.711 Personal history of pulmonary embolism; Z95.810 Presence of automatic (implantable) cardiac defibrillator
CPT/HCPCS: 97116-GP; 97161-GP; 97165-GO; 97530-GO; 97535-GO; C1760; C1769; C1894; G8978-GP-CI; G8978-GP-CJ; G8979-GP-CI; G8980-GP-CI; G8987-GO-CI; G8987-GO-CJ; G8988-GO-CI; G8989-GO-CI; J1100; J1170; J1644; J2001; J2370; J2405; J2704; J2720; J3010; Q9967

== ENCOUNTER 2017-10-20 23:56 | Observation (INO) | payer OTHER ==
--- NOTE | 2017-10-21 00:04 | EDPHY ---
H & P Time Seen by Provider: 10/21/17 00:00 HPI/ROS: CC: Chest pain HPI: This 82-year-old male with past medical history of ischemic cardiomyopathy , s/p CABG, s/p Pacemaker, severe aortic stenosis and recent TAVR placement on September 02, 2015 drove himself to the emergency department tonight for chest discomfort that started at about 8 o'clock this evening. He states the discomfort came on while he was watching TV. He describes it as a burning sensation substernally and radiating to his right chest. It does not radiate anywhere else. No palpitations. He took nitroglycerin at 8:30 p.m., 10:30 p.m. , 11:15 p.m. The nitroglycerin would help "a little bit" and then the pain would return. He states his pain is currently 5/10. No other aggravating or alleviating factors. He had some mild increased shortness of breath but nothing significant. Did not have nausea, vomiting, or diaphoresis. He did not feel dizzy or lightheaded. He states he has been following his doctor's orders to walk 5 miles a week. He will occasionally have some chest discomfort but usually it is relieved by the nitroglycerin. No other complaints. He has not been ill recently. REVIEW OF SYSTEMS: Constitutional: No fever, no chills. Eyes: No discharge. ENT: No sore throat. Respiratory: States chronic cough. Cardiac: See HPI. Gastrointestinal: No abdominal pain, no vomiting. Genitourinary: No hematuria. Musculoskeletal: No back pain. Skin: No rashes. Neurological: No headache. Source: Patient Exam Limitations: No limitations - Personal History Tetanus Vaccine Date: unknown - Medical/Surgical History PMH: PMH: Severe aortic stenosis, ischemic cardiomyopathy, sick sinus syndrome, pulmonary embolism, hypertension, hyperlipidemia, prostate cancer, GI bleed, chronic kidney disease PSH: Coronary artery bypass grafting, pacemaker, TAVR, radiation bead seeding, appendectomy, tonsillectomy FH: CAD, HTN Allergies: Penicillin Medications: Verified by nursing and reviewed by me. Includes Warfarin, Plavix , Furosemide, Coreg, Atorvastatin Social: No tobacco products or alcohol PCP: Dr. Tani Michael Hx Asthma: No Hx Chronic Respiratory Disease: No Hx Diabetes: No Hx Cardiac Disease: Yes Hx Renal Disease: Yes Hx Cirrhosis: No Hx Alcoholism: No Hx HIV/AIDS: No Hx Splenectomy or Spleen Trauma: No Other PMH: CAD,HTN, CHF, STENTS,CABG x 2, pacemaker insertion 10/29, PE prostate cancer, gi bleed, CRI, angio 08/19 - Family History Significant Family History: Heart disease, Hypertension - Social History Smoking Status: Never smoked Alcohol Use: None Drug Use: None Additional Social History: . - Physical Exam Exam: General Appearance: Alert, no distress. Eyes: Pupils equal and round no pallor or injection. ENT, Mouth: Mucous membranes are moist. Respiratory: There are no retractions, lungs are clear to auscultation. Cardiovascular: Regular rate and rhythm. ?systolic murmur Gastrointestinal: Abdomen is soft and nontender, no pulsatile masses, bowel sounds normal. Neurological: Awake and alert, sensory and motor exams grossly normal. Skin: Warm and dry, no rashes. Musculoskeletal: Neck is supple nontender. No JVD. Extremities are symmetrical, full range of motion. No edema. Psychiatric: Patient is oriented X 3, there is no agitation. DIFFERENTIAL DIAGNOSIS: After history and physical exam differential diagnosis was considered for but not including [Myocardial Infarction, Acute Coronary Syndrome, Biliary Disease, unlikely PE, aortic aneurysm/dissection] Constitutional: Initial Vital Signs O2 Sat (%) 94 10/21/17 00:01 O2 Delivery Mode Nasal Cannula O2 (L/minute) 3 Allergies/Adverse Reactions: Penicillins Allergy (Severe, Verified 10/21/17 00:05) Hives Home Medications: Medication Instructions Recorded Atorvastatin Calcium [Lipitor 80 80 mg PO DAILY@01/18/15 mg] Clopidogrel Bisulfate [Plavix (*)] 75 mg PO DAILY@01/18/15 Isosorbide Mononitrate [Imdur 30 30 mg PO BID@,01/18/15 mg (*)] Multivitamins [Multivitamin (*)] 1 tab PO DAILY@01/18/15 Hartwick-3 Fatty Acids [Fish Oil 1000 1,000 mg PO DAILY@01/18/15 mg (*)] Ranolazine [Ranexa] 500 mg PO DAILY@01/18/15 Warfarin Sodium [Coumadin 5MG (*)] 2.5 mg PO SUMOWETHFRSA@01/18/15 Warfarin Sodium [Coumadin 5MG (*)] 5 mg PO TU@16 01/18/15 Nitroglycerin [Nitrostat 0.4 mg 0.4 mg SL Q5M PRN #20 btl 08/20/17 (*)] Furosemide [Lasix 20 MG (*)] 10/21/17 Medical Decision Making - Diagnostics EKG Interpretation: EKG 23:58 NRS, HR 76, NSIVCD, LVH with repolarization abnormality, inferior infarct age indeterminate, ST Depression c/w ischemia ant-lat leads more pronounced than on prior EKG dated 09/03/2017. EKG 00:24 NSR, HR 70, NSIVCD, inferior infarct age indeterminate, inferior Q waves; ant-lat ST depression improved from EKG #1 EKG 0051 NSR, HR 60, PVC, NSIVCD, inferior Q waves, ant-lat ST depression similar to EKG #2 EKG 0105 NSR, HR 60, NSIVCD, LVH with secondary repolarization abnormality, inferior infarct age indeterminate. ant-lat ST depression unchanged PAIN RETURNING 10/12: EKG 01:38 NSR, HR 61, NSIVCD, LVH with secondary repolarization abnormality, inferior infarct age indeterminate, t-wave inversions ant-lat Imaging Results: Portable CXR: sternal wires, clips c/w prior open heart, bipolar pacemaker on left, borderline cardiomegaly, pulmonary venous prominence. No infiltrate or effusion. Similar to prior CXR 08/20/17. Imaging: I viewed and interpreted images myself ED Course/Re-evaluation: The patient was seen and examined Vital signs reviewed. He was given 81 mg of aspirin. His 1st EKG showed changes consistent with ischemia. He was given 3 sublingual nitroglycerin and started on a nitro drip and eventually his pain completely resolved. His subsequent serial EKGs showed improvement of the anterolateral ischemia apparent on the 1st EKG. His chest x-ray was unchanged. His CBC and comprehensive metabolic panel significant for a BUN of 28, creatinine of 1.8, platelets of 129, and a troponin at 0.029 and INR of 1.73. Dr. Jolley, hospitalist, was contacted and will accept the admission. He would like me to discuss whether the patient needed cardiac catheterization, stat echo, or bridging anticoagulation with Cardiology. Dr. Patten was contacted at 01:00 and felt the patient did not need cardiac catheterization, stat echo, or bridging anticoagulation tonight. He would like the nitro drip changed to 1 in of nitropaste every 6 hr. and cardiac enzymes per protocol. This information was relayed to Dr. Jolley. The patient continued to do well and pain free until approximately 01:35 when he said the pain started to return (2-310). An EKG was repeated and the patient was given 1 mg of morphine and his pain again resolved completely. At 02:05 EMS crew has arrived to transport the patient [facility]. - Data Points Laboratory Results: Laboratory Results 10/21/17 00:00 10/21/17 00:00 10/21/17 10/21/17 10/21/17 00:00 00:00 00:00 WBC 6.80 10^3/uL 10^3/uL (3.80-9.50) RBC 4.60 10^6/uL 10^6/uL (4.40-6.38) Hgb 14.0 g/dL g/dL (13.7-17.5) Hct 41.9 % % (40.0-51.0) MCV 91.1 fL fL (81.5-99.8) MCH 30.4 pg pg (27.9-34.1) MCHC 33.4 g/dL g/dL (32.4-36.7) RDW 13.3 % % (11.5-15.2) Plt Count 129 10^3/uL L 10^3/uL (150-400) MPV 10.3 fL fL (8.7-11.7) Neut % (Auto) 51.8 % % (39.3-74.2) Lymph % (Auto) 34.3 % % (15.0-45.0) [place] % (Auto) 8.5 % % (4.5-13.0) Eos % (Auto) 3.4 % % (0.6-7.6) Baso % (Auto) 1.9 % H % (0.3-1.7) Nucleat RBC Rel Count 0.0 % % (0.0-0.2) Absolute Neuts (auto) 3.52 10^3/uL 10^3/uL (1.70-6.50) Absolute Lymphs (auto) 2.33 10^3/uL 10^3/uL (1.00-3.00) Absolute Monos (auto) 0.58 10^3/uL 10^3/uL (0.30-0.80) Absolute Eos (auto) 0.23 10^3/uL 10^3/uL (0.03-0.40) Absolute Basos (auto) 0.13 10^3/uL H 10^3/uL (0.02-0.10) Absolute Nucleated RBC 0.00 10^3/uL 10^3/uL (0-0.01) Immature Gran % 0.1 % % (0.0-1.1) Immature Gran # 0.01 10^3/uL 10^3/uL (0.00-0.10) PT 19.9 SEC H SEC (12.0-15.0) INR 1.73 H (0.83-1.16) APTT 37.7 SEC SEC (23.0-38.0) Sodium 144 mEq/L mEq/L (135-145) Potassium 4.6 mEq/L mEq/L (3.5-5.2) Chloride 108 mEq/L mEq/L (97-110) Carbon Dioxide 25 mEq/l mEq/l (22-31) Anion Gap 11 mEq/L mEq/L (8-16) BUN 28 mg/dL H mg/dL (7-23) Creatinine 1.8 mg/dL H mg/dL (0.7-1.3) Estimated GFR 36 Glucose 91 mg/dL mg/dL (70-100) Calcium 9.5 mg/dL mg/dL (8.5-10.4) Magnesium 2.2 mg/dL mg/dL (1.6-2.3) Total Bilirubin 0.9 mg/dL mg/dL (0.1-1.4) Conjugated Bilirubin 0.3 mg/dL mg/dL (0.0-0.5) Unconjugated Bilirubin 0.6 mg/dL mg/dL (0.0-1.1) AST 45 IU/L IU/L (17-59) ALT 31 IU/L IU/L (21-72) Alkaline Phosphatase 72 IU/L IU/L (38-126) Creatine Kinase 34 IU/L IU/L (0-224) CK-MB (CK-2) Fraction 0.71 ng/mL ng/mL (0.00-4.55) Troponin I 0.029 ng/mL ng/mL (0.000-0.034) Total Protein 7.1 g/dL g/dL (6.3-8.2) Albumin 3.9 g/dL g/dL (3.5-5.0) Lipase 230 IU/L IU/L (23-300) Medications Given: Nitroglycerin/Dextrose (Nitroglycerin 200 Mcg/Ml (Premix)) 250 mls @ 1.5 mls/ hr IV CONT RYLIE PRN Reason: Protocol Stop: 04/19/18 00:43 Last Admin: 10/21/17 00:47 Dose: 250 mls Discontinued Medications Aspirin (Aspirin) 81 mg PO EDNOW ONE Stop: 10/21/17 00:09 Last Admin: 10/21/17 00:12 Dose: 81 mg Morphine Sulfate (Morphine) 1 mg IVP EDNOW ONE Stop: 10/21/17 01:41 Last Admin: 10/21/17 01:44 Dose: 1 mg Nitroglycerin (Nitrostat) 0.4 mg SL Q5M PRN PRN Reason: Chest Pain Last Admin: 10/21/17 00:21 Dose: 0.4 mg Nitroglycerin (Nitro-Bid 2%) 1 inch TP EDNOW ONE Stop: 10/21/17 01:03 Last Admin: 10/21/17 01:09 Dose: 1 inch Departure - Departure Disposition: [facility] Inpatient Acute Clinical Impression: Acute coronary syndrome Condition: Good
[2017-10-21] MEDS ORDERED: ASPIRIN 81 MG CHEWABLE TAB PO ONE (00:08)
[2017-10-21] MEDS ORDERED: ASPIRIN 81 MG CHEWABLE TAB ONE (00:09)
[2017-10-21] MEDS: NITROGLYCERIN 0.4 MG BTL SL PRN ×3 (00:11→00:21)
--- NOTE | 2017-10-21 00:18 | CPEKG ---
Heart Rate: 60 RR Interval: 1000 P-R Interval: 148 QRSD Interval: 124 QT Interval: 420 QTC Interval: 420 P Anna: -13 QRS Anna: 7 T Wave Anna: 158 EKG Severity - ABNORMAL ECG - EKG Impression: SINUS RHYTHM EKG Impression: NONSPECIFIC INTRAVENTRICULAR CONDUCTION DELAY EKG Impression: PROBABLE LVH WITH SECONDARY REPOL ABNRM EKG Impression: INFERIOR INFARCT, AGE INDETERMINATE Electronically Signed By: Erica Cary 21-Oct-2017 23:04:18
[2017-10-21 00:21] LABS: PLATELET COUNT 129 10^3/uL (150-400)
[2017-10-21 00:22] LABS: INR 1.73 (0.83-1.16); PROTIME(PATIENT) 19.9 SEC (12.0-15.0)
[2017-10-21] MEDS ORDERED: NITROGLYCERIN/D5W 50 MG/250 ML BOTTLE IV ONE (00:30)
[2017-10-21] MEDS ORDERED: NITROGLYCERIN/DEXTROSE 250 ML IV SCH ×2 (00:45→01:00)
[2017-10-21] MEDS ORDERED: NITROGLYCERIN 2% 1 GM PACKET TP ONE (01:02)
[2017-10-21] MEDS ORDERED: ACETAMINOPHEN 325 MG TAB PO PRN (02:11)
[2017-10-21] MEDS ORDERED: ONDANSETRON 4 MG/2 ML VIAL IVP PRN (02:11)
[2017-10-21] MEDS ORDERED: ONDANSETRON DISINTEGRATING 4 MG TAB PO PRN (02:11)
--- NOTE | 2017-10-21 04:22 | PDGENHP ---
History and Physical - Chief Complaint Chest pain - History of Present Illness 82 yo M w/ hx of s/p recent TAVR, CAD s/p CABG x2, PE, SSS s/p PPM, and ICM presents with chest pain. Patient noted chest pain this evening, which he describes as severe and central with radiation to the R chest. The pain lasted for several hours despite taking 3 sublingual NTG's at home. He presented to [facility] and pain resolved after initiation of NTG drip. In the ED ECG was notable for lateral STD's, which resolved on subsequent check. At the time of my evaluation he is asymptomatic. History Information - Allergies/Home Medication List Allergies/Adverse Reactions: Penicillins Allergy (Severe, Verified 10/21/17 00:05) Hives Home Medications: Atorvastatin Calcium [Lipitor 80 mg] 80 mg PO DAILY@01/18/15 [Last Taken ] Clopidogrel Bisulfate [Plavix (*)] 75 mg PO DAILY@01/18/15 [Last Taken ] Isosorbide Mononitrate [Imdur 30 mg (*)] 30 mg PO BID@01/18/15 [Last Taken 08/20/17 17:00] Multivitamins [Multivitamin (*)] 1 tab PO DAILY@01/18/15 [Last Taken 08/20/17 ] [place]-3 Fatty Acids [Fish Oil 1000 mg (*)] 1,000 mg PO DAILY@01/18/15 [Last Taken 08/20/17] Ranolazine [Ranexa] 500 mg PO DAILY@01/18/15 [Last Taken 08/20/17] Warfarin Sodium [Coumadin 5MG (*)] 2.5 mg PO SUMOWETHFRSA@01/18/15 [Last Taken 08/17/17 16:00] Warfarin Sodium [Coumadin 5MG (*)] 5 mg PO TU@01/18/15 [Last Taken 08/13/17] Furosemide [Lasix 20 MG (*)] 10/21/17 [Last Taken Unknown] I have personally reviewed and updated: family history, medical history - Past Medical History coronary artery disease, CHF, myocardial infarction, pulmonary embolism Additional medical history: Aortic stenosis s/p TAVR - Surgical History Reports: coronary bypass surgery Additional surgical history: TAVR 09/02/17 - Family History Positive for: CAD, hypertension - Social History Smoking Status: Never smoked Alcohol Use: None Drug Use: None Review of Systems Review of Systems: ROS: 10pt was reviewed & negative except for what was stated in HPI & below Physical Exam Physical Exam: Temp Pulse Resp BP Pulse Ox 36.8 C 61 18 134/73 H 99 10/21/17 02:40 10/21/17 02:40 10/21/17 02:40 10/21/17 02:40 10/21/17 02:40 O2 (L/minute) 2 Constitutional: no apparent distress, chronically ill appearing Eyes: PERRL, EOMI Ears, Nose, Mouth, Throat: moist mucous membranes, no oral mucosal ulcers Cardiovascular: regular rate and rhythym, systolic murmur Respiratory: no respiratory distress, clear to auscultation Gastrointestinal: normoactive bowel sounds, soft, non-tender abdomen Skin: warm, normal color Musculoskeletal: full muscle strength, no muscle tenderness Neurologic: AAOx3, CN II-XII Intact Psychiatric: interacting appropriately, not anxious Lab Data & Imaging Review 10/21/17 00:00 10/21/17 00:00 WBC 6.80 10^3/uL (3.80-9.50) 10/21/17 00:00 RBC 4.60 10^6/uL (4.40-6.38) 10/21/17 00:00 Hgb 14.0 g/dL (13.7-17.5) 10/21/17 00:00 Hct 41.9 % (40.0-51.0) 10/21/17 00:00 MCV 91.1 fL (81.5-99.8) 10/21/17 00:00 MCH 30.4 pg (27.9-34.1) 10/21/17 00:00 MCHC 33.4 g/dL (32.4-36.7) 10/21/17 00:00 RDW 13.3 % (11.5-15.2) 10/21/17 00:00 Plt Count 129 10^3/uL (150-400) L 10/21/17 00:00 MPV 10.3 fL (8.7-11.7) 10/21/17 00:00 Neut % (Auto) 51.8 % (39.3-74.2) 10/21/17 00:00 Lymph % (Auto) 34.3 % (15.0-45.0) 10/21/17 00:00 [place] % (Auto) 8.5 % (4.5-13.0) 10/21/17 00:00 Eos % (Auto) 3.4 % (0.6-7.6) 10/21/17 00:00 Baso % (Auto) 1.9 % (0.3-1.7) H 10/21/17 00:00 Nucleat RBC Rel Count 0.0 % (0.0-0.2) 10/21/17 00:00 Absolute Neuts (auto) 3.52 10^3/uL (1.70-6.50) 10/21/17 00:00 Absolute Lymphs (auto) 2.33 10^3/uL (1.00-3.00) 10/21/17 00:00 Absolute Monos (auto) 0.58 10^3/uL (0.30-0.80) 10/21/17 00:00 Absolute Eos (auto) 0.23 10^3/uL (0.03-0.40) 10/21/17 00:00 Absolute Basos (auto) 0.13 10^3/uL (0.02-0.10) H 10/21/17 00:00 Absolute Nucleated RBC 0.00 10^3/uL (0-0.01) 10/21/17 00:00 Immature Gran % 0.1 % (0.0-1.1) 10/21/17 00:00 Immature Gran # 0.01 10^3/uL (0.00-0.10) 10/21/17 00:00 PT 19.9 SEC (12.0-15.0) H 10/21/17 00:00 INR 1.73 (0.83-1.16) H 10/21/17 00:00 APTT 37.7 SEC (23.0-38.0) 10/21/17 00:00 Sodium 144 mEq/L (135-145) 10/21/17 00:00 Potassium 4.6 mEq/L (3.5-5.2) 10/21/17 00:00 Chloride 108 mEq/L (97-110) 10/21/17 00:00 Carbon Dioxide 25 mEq/l (22-31) 10/21/17 00:00 Anion Gap 11 mEq/L (8-16) 10/21/17 00:00 BUN 28 mg/dL (7-23) H 10/21/17 00:00 Creatinine 1.8 mg/dL (0.7-1.3) H 10/21/17 00:00 Estimated GFR 36 10/21/17 00:00 Glucose 91 mg/dL (70-100) 10/21/17 00:00 Calcium 9.5 mg/dL (8.5-10.4) 10/21/17 00:00 Magnesium 2.2 mg/dL (1.6-2.3) 10/21/17 00:00 Total Bilirubin 0.9 mg/dL (0.1-1.4) 10/21/17 00:00 Conjugated Bilirubin 0.3 mg/dL (0.0-0.5) 10/21/17 00:00 Unconjugated Bilirubin 0.6 mg/dL (0.0-1.1) 10/21/17 00:00 AST 45 IU/L (17-59) 10/21/17 00:00 ALT 31 IU/L (21-72) 10/21/17 00:00 Alkaline Phosphatase 72 IU/L (38-126) 10/21/17 00:00 Creatine Kinase 34 IU/L (0-224) 10/21/17 00:00 CK-MB (CK-2) Fraction 0.71 ng/mL (0.00-4.55) 10/21/17 00:00 Troponin I 0.029 ng/mL (0.000-0.034) 10/21/17 00:00 Total Protein 7.1 g/dL (6.3-8.2) 10/21/17 00:00 Albumin 3.9 g/dL (3.5-5.0) 10/21/17 00:00 Lipase 230 IU/L (23-300) 10/21/17 00:00 Visualized and Interpreted Chest x-ray results: Yes Chest X-Ray results: no infiltrate Visualized and Interpreted EKG results: Yes EKG Interpretation: Positive for: other (Lateral STD's, TWI's) Assessment & Plan Assessment: 82 yo M w/ hx of s/p recent TAVR, CAD s/p CABG x2, PE, SSS s/p PPM, and ICM presents with chest pain. Plan: 1. Chest pain - Present for several hours, resolved with NTG drip, and with ST depressions and TWI's in lateral leads on ECG. He is currently chest pain free and hemodynamically stable. His initial troponin was negative. - Admit to PCU for observation - Monitor on telemetry, trend cardiac enzymes - Cardiology consulted (Dr. Patten), who recommended NTG paste 1" q6h, did not recommend anticoagulation or stat TTE - Noting complex history, will defer further work-up to cardiology service and maintain NPO 2. s/p TAVR - TAVR performed on 09/02. He reports improved exercise tolerance since the procedure. He is displaying so signs of heart failure currently. - Will repeat TTE to assess valve function - Continue Plavix 3. CAD - s/p CABG x2; acute management as above. 4. Hx of PE - On warfarin, subtherapeutic INR at 1.7 on time of admission. Noting he is not tachycardic or hypoxic I will not pursue PE diagnosis at this time but low threshold to evaluate if this changes. - Continue warfarin, monitor daily INR 5. ICM - Last EF 40-45%, he has no clinical signs of heart failure currently. Continue home meds. 6. SSS - s/p PPM Diet - NPO Code - DNR Ppx - warfarin Dispo - Admit to PCU under observation status
[2017-10-21 04:39] LABS: PLATELET COUNT 109 10^3/uL (150-400)
[2017-10-21] MEDS ORDERED: NITROGLYCERIN 2% 1 GM PACKET TP SCH (06:00)
[2017-10-21] MEDS ORDERED: CLOPIDOGREL BISULFATE 75 MG TAB PO SCH (10:30)
[2017-10-21] MEDS ORDERED: METOPROLOL TARTRATE 25 MG TAB PO SCH (10:30)
[2017-10-21 10:51] LABS: INR 1.63 (0.83-1.16); PROTIME(PATIENT) 19.5 SEC (12.0-15.0)
--- NOTE | 2017-10-21 11:01 | GCON ---
[f rep st] CONSULTATION CARDIOLOGY CONSULTATION CHIEF COMPLAINT: Chest pain. HISTORY OF PRESENT ILLNESS: This is an 82-year-old male with history of multiple CABG procedures as well as multiple PCIs and recent TAVR procedure. The patient actually was seen by me recently in the office for his 30-day post TAVR evaluation and was doing very well. His EF on his most recent echo, which was done last week, showed an ejection fraction that was reduced at 35%. However, his valve w as working quite well and the patient has been indicating he has been walking 5 miles a day without c hest pain. In the last 24 hours, however, the patient did have an onset of chest pain. The patient describes the pain as substernal with radiation to, interestingly enough, the right upper quadrant. This was different from his classic chest pain episodes where the pain radiated to his left shoulder and jaw. The patient came to the emergency room. ECG showed nonspecific T-wave changes in the later al leads, which were present on our ECG from our office last week as well. The patient's troponin wa s flat at 0.02. His chest pain was relieved with nitroglycerin administration. Currently, the patie nt is chest pain free. Denies any active symptomatology. No shortness of breath. No evidence of he art failure. Blood pressure and heart rate are currently stable. PAST MEDICAL HISTORY: Significant for permanent pacemaker placement, atrial fibrillation, ischemic c ardiomyopathy, coronary artery disease, aortic stenosis. PAST SURGICAL HISTORY: Significant for CABG x2 separate procedures, TAVR, multiple PCIs, pacemaker p lacement. HOME MEDICATIONS: Consist of Ranexa, Lipitor, Plavix, Imdur, Lasix. SOCIAL HISTORY: The patient is . No smoking, no drinking. FAMILY HISTORY: Noncontributory. REVIEW OF SYSTEMS: Patient currently denies any visual changes. No headache. No palpitations. No chest pain. No shortness of breath. No abdominal pain. No lower extremity pain. No edema. No new neurologic deficits. PHYSICAL EXAMINATION: VITAL SIGNS: Patient is afebrile at 96, blood pressure currently 126/70 with a heart rate of 72, respiratory rate 12, satting 95% on room air. HEENT: Pupils equal, round, and r eactive to light and accommodation. Extraocular movements intact. CARDIOVASCULAR: Regular rate and rhythm, S1, S2. There is a 2/6 murmur heard best at the right upper sternal border. LUNGS: Clear to auscultation bilaterally. ABDOMEN: Soft, nontender, no guarding. EXTREMITIES: No clubbing, no cyanosis, no edema. NEUROLOGIC: The patient is alert and oriented x3. LABORATORY VALUES: Currently show troponin 0.02. BUN 27, creatinine 1.5, potassium 4.4. Hemoglobin 12.6, hematocrit 38.6, platelet count of 109, white blood cell count 6.58. Chest x-ray shows chroni c cardiomegaly without decompensation. ECG currently shows sinus rhythm with nonspecific T-wave torrez ges in the lateral leads, which was present on prior ECGs. ASSESSMENT/PLAN: Chest pain. At this time, the patient's chest pain is completely resolved. It is interesting to note that his chest pain description was more radiated around the right upper quadrant rather than the substernal area or his left shoulder like his prior episodes. At this time, given t he fact the patient's creatinine is slightly elevated as well as the patient is asymptomatic, I would pursue a conservative medical route at this point. The patient is in agreement with this at this ti me. We will restart his Ranexa as well as his Imdur at a higher dose at 60 mg p.o. b.i.d., continue his Plavix as well as his Coumadin as long as no new pain in the right upper quadrant develops, i.e., gallbladder issues. Additionally, as long as his blood pressure can be maintained adequately, a low -dose beta tiffanie could be utilized as well as an antianginal. We will continue to follow. Thank hunter josé for the consultation. /[id number]/MODL
--- NOTE | 2017-10-21 11:44 | CPEKG ---
Heart Rate: 61 RR Interval: 984 P-R Interval: 140 QRSD Interval: 126 QT Interval: 416 QTC Interval: 419 P [place]: -10 QRS [place]: 6 T Wave [place]: 143 EKG Severity - ABNORMAL ECG - EKG Impression: SINUS RHYTHM EKG Impression: NONSPECIFIC INTRAVENTRICULAR CONDUCTION DELAY EKG Impression: PROBABLE LVH WITH SECONDARY REPOL ABNRM EKG Impression: INFERIOR INFARCT, AGE INDETERMINATE Electronically Signed By: Erica Cary 21-Oct-2017 23:03:48
[2017-10-21] MEDS: ISOSORBIDE MONONITRATE 30 MG TAB.SR PO SCH ×2 (12:13→17:30)
--- NOTE | 2017-10-21 13:57 | ASMTCMCOM ---
CM Note CM Note Notes: 10/21/2017 Case Management Note Reviewed chart, discussed with RN. Pt admitted for chest pain. There are no case management d/c needs identified d/t pt activity levels prior to admission and marital status. Pt is independent in ADL's. There are no PT or OT evals ordered at this time. Case Management d/c poc: anticipating independent with follow up as directed. Case Management available if d/c needs change. Date Signed: 10/21/2017 01:57 PM Electronically Signed By:Nunu Ryan RN
[2017-10-21 14:35] VITALS: BP 118/54; PULSE 60; RESP 18; TEMP 97.6; O2SAT 99
[2017-10-21] MEDS ORDERED: NITROGLYCERIN 0.4 MG BTL SL PRN (14:42)
--- NOTE | 2017-10-21 14:54 | CPEKG ---
Heart Rate: 60 RR Interval: 1000 P-R Interval: 148 QRSD Interval: 124 QT Interval: 420 QTC Interval: 420 P [place]: -22 QRS [place]: -4 T Wave [place]: 146 EKG Severity - ABNORMAL ECG - EKG Impression: SINUS RHYTHM EKG Impression: VENTRICULAR PREMATURE COMPLEX EKG Impression: LEFT BUNDLE BRANCH BLOCK EKG Impression: Inferior infarct, age indeterminate EKG Impression: INFERIOR Q WAVES, POSSIBLY DUE TO LBBB Electronically Signed By: Erica Cary 21-Oct-2017 23:07:16
[2017-10-21] MEDS ORDERED: WARFARIN SODIUM 2.5 MG TAB PO SCH (16:00)
[2017-10-21] MEDS ORDERED: WARFARIN SODIUM 5 MG TAB PO SCH (16:00)
--- NOTE | 2017-10-21 16:03 | ASMTLACE ---
LACE Length of stay for Answers: Less than 1 day current admission Comorbidities - select Answers: Congestive heart failure all that apply Coronary Artery Disease Mild liver or renal disease Previous myocardial infarction Other Notes: Pulmonary embolism, HTN, sick sin us syndrome, hyperlipidemi a, prostate cancer, GI bleed, h/d TAVR # of Emergency department Answers: 1-2 visits in the last 6 months Score: 9 Date Signed: 10/21/2017 04:03 PM Electronically Signed By:Nunu Ryan RN
[2017-10-21] MEDS ORDERED: WARFARIN SODIUM 5 MG TAB PO ONE (16:15)
--- NOTE | 2017-10-21 16:32 | GDS ---
[f rep st] DISCHARGE SUMMARY ALL DIAGNOSES: 1. Chest pain, unlikely cardiac. 2. History of aortic stenosis, status post recent transcatheter aortic valve replacement. 3. Coronary artery disease, status post coronary artery bypass graft. 4. History of a pulmonary embolus, on warfarin, mildly subtherapeutic. 5. Ischemic cardiomyopathy with an ejection fraction of 40% to 45%. 6. Sick sinus syndrome, status post pacemaker. 7. Acute on chronic kidney disease. 8. Mild thrombocytopenia. HOSPITAL COURSE: 82-year-old man admitted with chest pain. He was seen by Cardiology. Troponins harman ve been negative. Serial EKGs have been unchanged from prior. I think this is unlikely to be a pulm onary embolus in the setting of being on warfarin, although he is slightly subtherapeutic. Chest debra n radiated to his right upper quadrant, there is some question whether this may be gallbladder relate d, although his LFTs are perfectly normal and the pain is completely resolved. His creatinine was 1.8 on admission. His baseline is around 1.3 to 1.5. On the day of discharge, it is 1.5. His INR is slightly subtherapeutic at 1.63 on the day of discharge. I recommend that he take a doubl e dose of warfarin tonight, then return to his normal schedule. He will follow up with Dr. Michael in 1 week to have these labs redrawn. MEDICATION CHANGES: 1. Increase Imdur from 30 mg twice daily to 60 mg twice daily. 2. Continue other medications without change, except for 1 additional dose of warfarin. FOLLOWUP INSTRUCTIONS: 1. Dr. Michael in 1 week to have a repeat CBC, basic metabolic panel, INR. 2. Cardiology within 1 month, or if he has any other concerning symptoms. DISPOSITION: Discharged home in stable condition. All of the above was discussed with the patient. /[id number]/MODL
[2017-10-21] MEDS ORDERED: ATORVASTATIN CALCIUM 40 MG TAB PO SCH (18:00)
[2017-10-21] MEDS ORDERED: RANOLAZINE 500 MG TAB.ER PO SCH (21:00)
[2017-10-22] MEDS ORDERED: POTASSIUM CL 10 MEQ TAB PO SCH (09:00)
[2017-10-22] MEDS ORDERED: OMEGA-3 FATTY ACIDS 1,000 MG CAP PO SCH (09:00)
[2017-10-22] MEDS ORDERED: WARFARIN SODIUM 5 MG TAB PO SCH (16:00)
[2017-10-23] MEDS ORDERED: WARFARIN SODIUM 2.5 MG TAB PO SCH (16:00)
== END 2017-10-21 17:10 | disposition home or self-care (01) ==
LOC: CED 23:56 → CEDHOLD 10-21 01:04 → F2W 10-21 02:43
PROVIDERS: ADMIT Student in an Organized Health Care Education/Training Program; ATTEND Student in an Organized Health Care Education/Training Program
DX: R07.9 Chest pain, unspecified (principal); I25.10 Atherosclerotic heart disease of native coronary artery without angina pectoris; I25.5 Ischemic cardiomyopathy; I49.5 Sick sinus syndrome; N18.9 Chronic kidney disease, unspecified; D69.6 Thrombocytopenia, unspecified; Z86.711 Personal history of pulmonary embolism; Z95.0 Presence of cardiac pacemaker; Z85.46 Personal history of malignant neoplasm of prostate
CPT/HCPCS: 71045; 93005; G0378; J2270; 80048-PO; 80076-PO; 82550-PO; 82553-PO; 83690-PO; 83735-PO; 84100-PO; 84484-PO; 85025-PO; 85610-PO; 85730-PO; 96365

== ENCOUNTER → 2017-10-30 | Outpatient (CLI) | payer OTHER | LOC: CIMAGING 08:24 | PROVIDERS: ATTEND Internal Medicine | DX: R10.11 Right upper quadrant pain (principal); D69.6 Thrombocytopenia, unspecified; N18.9 Chronic kidney disease, unspecified | CPT/HCPCS: 76700-PO ==

== ENCOUNTER 2018-05-17 12:01 | Emergency (ER) | payer OTHER ==
--- NOTE | 2018-05-17 12:18 | EDPHY ---
H & P Time Seen by Provider: 05/17/18 12:11 HPI/ROS: CHIEF COMPLAINT: Bleeding HISTORY OF PRESENT ILLNESS: The patient is an 82-year-old man with history of atrial fibrillation, coronary artery disease and aortic stenosis with previous CABG x2, multiple stents, pacemaker and TAVR. He is on Coumadin and his INR was checked yesterday and was 3. He also 1 week ago had a mole removed on his right cheek at the turf keeper office. He has sutures in place. Today when he was at the bank it began bleeding briskly at the medial aspect of the wound. He held pressure and drove here to the [facility]. He continues to bleed briskly. No lightheadedness. He denies trauma. No signs of infection. Severity: Severe Modifying factors: Hold with pressure REVIEW OF SYSTEMS: Constitutional: denies: chills, fever, recent illness, recent injury EENTM: denies: blurred vision, double vision, nose congestion Respiratory: denies: cough, shortness of breath Cardiac: denies: chest pain, irregular heart rate, lightheadedness, palpitations Gastrointestinal/Abdominal: denies: abdominal pain, diarrhea, nausea, vomiting, blood streaked stools Genitourinary: denies: dysuria, frequency, hematuria, pain Musculoskeletal: denies: joint pain, muscle pain Skin: denies: lesions, rash, jaundice, bruising Neurological: denies: headache, numbness, paresthesia, tingling, dizziness, weakness Hematologic/Lymphatic: denies: blood clots, easy bleeding, easy bruising Immunologic/allergic: denies: HIV/AIDS, transplant 10 systems reviewed and negative except as noted EXAM: GENERAL: Well-appearing, well-nourished and in no acute distress. HEAD: Atraumatic, normocephalic. EYES: Pupils equal round and reactive to light, extraocular movements intact, sclera anicteric, conjunctiva are normal. ENT: TMs normal, nares patent, oropharynx clear without exudates. Moist mucous membranes. NECK: Normal range of motion, supple without lymphadenopathy or JVD. LUNGS: Breath sounds clear to auscultation bilaterally and equal. No wheezes rales or rhonchi. HEART: Regular rate and rhythm without murmurs, rubs or gallops. ABDOMEN: Soft, nontender, normoactive bowel sounds. No guarding, no rebound. No masses appreciated. BACK: No CVA tenderness, no spinal tenderness, step-offs or deformities EXTREMITIES: Normal range of motion, no pitting or edema. No clubbing or cyanosis. NEUROLOGICAL: Cranial nerves II through XII grossly intact. Normal speech, normal gait. 5/5 strength, normal movement in all extremities, normal sensation , normal reflexes PSYCH: Normal mood, normal affect. SKIN: 3 cm incision to right cheek, sutured, brisk venous bleeding but nonpulsatile from the medial aspect. No sign of infection. Source: Patient Exam Limitations: No limitations - Personal History Tetanus Vaccine Date: unknown - Medical/Surgical History Hx Asthma: No Hx Chronic Respiratory Disease: No Hx Diabetes: No Hx Cardiac Disease: Yes Hx Renal Disease: Yes Hx Cirrhosis: No Hx Alcoholism: No Hx HIV/AIDS: No Hx Splenectomy or Spleen Trauma: No Other PMH: CAD,HTN, CHF, STENTS,CABG x 2, pacemaker insertion 10/29, PE prostate cancer, gi bleed, CRI, TAVR, atrial fibrillation, - Family History Significant Family History: Heart disease - Social History Smoking Status: Never smoked Alcohol Use: Sober Drug Use: None Constitutional: Initial Vital Signs Temperature (C) 36.6 C 05/17/18 12:21 Heart Rate 65 05/17/18 12:21 Respiratory Rate 18 05/17/18 12:21 Blood Pressure 143/67 H 05/17/18 12:21 O2 Sat (%) 94 05/17/18 12:21 O2 Delivery Mode Room Air Allergies/Adverse Reactions: Penicillins Allergy (Severe, Verified 10/21/17 00:05) Hives Home Medications: Medication Instructions Recorded Atorvastatin Calcium [Lipitor 80 80 mg PO DAILY18 01/18/15 mg] Clopidogrel Bisulfate [Plavix (*)] 75 mg PO DAILY@01/18/15 Multivitamins [Multivitamin (*)] 1 tab PO DAILY 01/18/15 [place]-3 Fatty Acids [Fish Oil 1000 1,000 mg PO DAILY 01/18/15 mg (*)] Ranolazine [Ranexa] 500 mg PO DAILY 01/18/15 Warfarin Sodium [Coumadin 5MG (*)] 2.5 mg PO SUWETHSA@01/18/15 Warfarin Sodium [Coumadin 5MG (*)] 5 mg PO 01/18/15 Nitroglycerin [Nitrostat 0.4 mg 0.4 mg SL Q5M PRN #20 btl 08/20/17 (*)] Carvedilol [Coreg (*)] 3.125 mg PO BIDMEAL 10/21/17 Furosemide [Lasix 20 MG (*)] 20 mg PO DAILY #0 10/21/17 Isosorbide Mononitrate [Imdur 30 60 mg PO BIDNITRATE #120 tab.sr 10/21/17 mg (*)] Potassium Cl [Klor-Con 10 meq (RX)] 10 meq PO DAILY #0 10/21/17 Medical Decision Making Procedures: We held pressure initially bleeding is controlled. I then injected with lidocaine with epinephrine and the bleeding slowed. I then placed a figure 8 suture over the medial aspect of the laceration and the bleeding was stopped. ED Course/Re-evaluation: We checked the patient's Coumadin. It is 3.1. I will have him hold his Coumadin tonight and resume a tomorrow. We discussed suture care and having his sutures removed when the others are removed. He will have his sutures removed Saturday by Dr. Greene has turf keeper Differential Diagnosis: Partial list of the Differential diagnosis considered include but were not limited to; dehiscence, hemorrhage and although unlikely based on the history and physical exam, I also considered infection, trauma. I discussed these differential diagnoses and the plan with the patient as well as the usual and expected course. The patient understands that the diagnosis is provisional and that in medicine we are not always correct and that further workup is often warranted. Usual and customary warnings were given. All of the patient's questions were answered. The patient was instructed to return to the emergency department should the symptoms at all worsen or return, otherwise to followup with the physician as we discussed. - Data Points Laboratory Results: 05/17/18 12:30 PT 30.0 SEC H SEC (12.0-15.0) INR 2.87 H (0.83-1.16) APTT 47.7 SEC H SEC (23.0-38.0) Departure - Departure Disposition: Home, Routine, Self-Care Clinical Impression: Bleeding Condition: Fair Instructions: Care For Your Stitches (ED) Additional Instructions: Hold your Coumadin dose this evening. Resume tomorrow. Have all sutures removed as previously planned. Referrals: NONE *PRIMARY CARE P,. [Primary Care Provider] - As per Instructions LENNY GREENE [Medical Doctor] - As per Instructions
[2018-05-17 12:26] VITALS: BP 143/67
[2018-05-17 13:26] LABS: INR 2.87 (0.83-1.16)
== END 2018-05-17 12:30 | disposition home or self-care (01) ==
LOC: CED 12:01
PROC: 0HQ1XZZ Repair Face Skin, External Approach (ICD-10-PCS; principal; 2018-05-17)
DX: L76.22 Postprocedural hemorrhage of skin and subcutaneous tissue following other procedure (principal); I25.10 Atherosclerotic heart disease of native coronary artery without angina pectoris; I25.5 Ischemic cardiomyopathy; Z95.0 Presence of cardiac pacemaker; Z95.818 Presence of other cardiac implants and grafts

== ENCOUNTER → 2018-05-26 | Outpatient (CLI) | payer OTHER | LOC: CLAB 10:01 | PROVIDERS: ATTEND Internal Medicine | DX: J90 Pleural effusion, not elsewhere classified (principal); Z95.0 Presence of cardiac pacemaker; Z95.5 Presence of coronary angioplasty implant and graft | CPT/HCPCS: 71046-PO ==